=== PATIENT | female | born 1975 | race African-American/Black ===

== ENCOUNTER 2017-10-25 22:52 | Emergency (ER) | payer SELFPAY ==
[2017-10-25] MEDS ORDERED: HYDROCODONE/APAP 10/325 TAB ONE (23:44)
[2017-10-25] MEDS ORDERED: IBUPROFEN 200 MG TAB PO ONE (23:44)
[2017-10-25] MEDS ORDERED: IBUPROFEN 400 MG TAB ONE (23:44)
--- NOTE | 2017-10-26 01:39 | ER ---
Nurse's Notes [facility] Name: Apple Camara Age: 42 yrs Sex: Female : 1975 Arrival Date: 10/25/2017 Time: 23:02 Bed 19 Private MD: Diagnosis: Pain in right knee Presentation: 10/25 23:17 Presenting complaint: Patient states: "Yesterday I was walking down the stairs and I bs1 felt a pop in my knee and I almost fell it hurt so bad, almost like a Frank horse, the pain got so bad that I needed to come in.". Transition of care: patient was not received from another setting of care. Onset of symptoms was October 24, 2017. Initial Sepsis Screen: Does the patient meet any 2 criteria? No. Patient's initial sepsis screen is negative. Does the patient have a suspected source of infection? No. Patient's initial sepsis screen is negative. Care prior to arrival: None. 23:17 Method Of Arrival: Ambulatory bs1 23:17 Acuity: JOSE 4 bs1 SHOW GIRL: 10/26 00:58 LMP N/A - Irregular menses bs1 Historical: - Allergies: 10/25 23:19 No Known Allergies; bs1 - Home Meds: 23:19 None [Active]; bs1 - PMHx: 23:19 Hypertension; bs1 - PSHx: 23:19 c section; bs1 - Immunization history:: Adult Immunizations up to date. - Social history:: Smoking status: Patient/guardian denies using tobacco. - Family history:: not pertinent. Screenin:58 Abuse screen: Denies threats or abuse. Denies injuries from another. Nutritional bs1 screening: No deficits noted. Tuberculosis screening: No symptoms or risk factors identified. Fall Risk None identified. Assessment: 23:20 General: Appears in no apparent distress. uncomfortable, Behavior is calm, cooperative, bs1 appropriate for age. Pain: Complains of pain in right knee and posterior aspect of right knee Pain does not radiate. Pain currently is 9 out of 10 on a pain scale. Neuro: Level of Consciousness is awake, alert, obeys commands, Oriented to person, place, time, situation, Appropriate for age Wet Suit Gluer are equal bilaterally Moves all extremities. Cardiovascular: Denies chest pain, palpitations, shortness of breath, Heart tones S1 S2 present Capillary refill < 3 seconds Patient's skin is warm and dry. Respiratory: Airway is patent Trachea midline Respiratory effort is even, unlabored, Respiratory pattern is regular, symmetrical, Breath sounds are clear bilaterally. GI: No deficits noted. No signs and/or symptoms were reported involving the gastrointestinal system. : No deficits noted. No signs and/or symptoms were reported regarding the genitourinary system. EENT: No deficits noted. No signs and/or symptoms were reported regarding the EENT system. Derm: Skin is intact, Skin is pink, warm \\T\\ dry. Musculoskeletal: Circulation, motion, and sensation intact. Capillary refill < 3 seconds, Range of motion: limited in right knee Reports pain in right knee and posterior aspect of right knee. 10/26 00:42 Reassessment: Patient appears in no apparent distress at this time. No changes from bs1 previously documented assessment. Patient and/or family updated on plan of care and expected duration. Pain level reassessed. Patient is alert, oriented x 3, equal unlabored respirations, skin warm/dry/pink. 02:00 Reassessment: Patient appears in no apparent distress at this time. Patient and/or bs1 family updated on plan of care and expected duration. Pain level reassessed. Patient is alert, oriented x 3, equal unlabored respirations, skin warm/dry/pink. Patient states feeling better. Patient states symptoms have improved. 02:45 Reassessment: No changes from previously documented assessment. Patient and/or family bs1 updated on plan of care and expected duration. Pain level reassessed. Patient is alert, oriented x 3, equal unlabored respirations, skin warm/dry/pink. Vital Signs: 10/25 23:19 BP 190 / 121; Pulse 69; Resp 18; Temp 97.4; Pulse Ox 100% on R/A; Weight 136.08 kg; bs1 Height 5 ft. 6 in. (167.64 cm); Pain 8/10; 23:39 BP 168 / 95; Pulse 68; Pulse Ox 100% on R/A; Pain 7/10; bs1 23:45 BP 168 / 107; Pulse 72; Pulse Ox 100% on R/A; Pain 7/10; bs1 10/26 02:00 BP 132 / 77; Pulse 72; Pulse Ox 99% on R/A; Pain 5/10; bs1 10/25 23:19 Body Mass Index 48.42 (136.08 kg, 167.64 cm) bs1 ED Course: 10/25 23:02 Patient arrived in ED. es 23:08 Sawyer Campbell MD is Attending Physician. bautista 23:17 Ophelia Vargas, RN is Primary Nurse. bs1 23:19 Triage completed. bs1 10/26 00:10 Knee Right 3 View XRAY In Process Unspecified. EDMS 00:28 Arm band placed on right wrist. bs1 00:43 Patient has correct armband on for positive identification. Bed in low position. Call bs1 light in reach. Side rails up X 1. Pulse ox on. NIBP on. 00:43 No provider procedures requiring assistance completed. Patient did not have IV access bs1 during this emergency room visit. 01:35 Patient taken to ultrasound. jenn 01:39 Deacon Montes De Oca MD is Referral Physician. bautista 03:02 US Extremity Venous Uni Ltd In Process Unspecified. EDMS Administered Medications: 10/25 23:46 Drug: Beggs 10 mg-325 mg 1 tabs Route: PO; bs1 10/26 02:55 Follow up: Response: No adverse reaction; Pain is decreased bs1 10/25 23:46 Drug: Motrin 600 mg Route: PO; bs1 10/26 02:55 Follow up: Response: No adverse reaction; Pain is decreased bs1 Outcome: 01:39 Discharge ordered by . bautista 02:55 Discharged to home ambulatory, with crutches. bs1 02:55 Condition: stable 02:55 Discharge instructions given to patient, Instructed on discharge instructions, follow up and referral plans. medication usage, Demonstrated understanding of instructions, follow-up care, medications, crutch walking, Prescriptions given X 2. 02:57 Patient left the ED. bs1 Signatures: Dispatcher [employer] EDMS Sawyer Campbell MD MD cha Salyer, Edna es Dupre, Jacques jd Salazar, Brittany, ANTHONY RN bs1 Corrections: (The following items were deleted from the chart) 10/25 23:58 23:19 Resp 18bpm; Pulse Ox 100% RA; Temp 97.4F; 136.08 kg; Height 5 ft. 6 in.; BMI: bs1 48.4; Pain 8/10; bs1
--- NOTE | 2017-10-26 01:39 | EDPHYS ---
Physician Documentation [facility] Name: Apple Camara Age: 42 yrs Sex: Female : 1975 Arrival Date: 10/25/2017 Time: 23:02 Bed 19 Private MD: ED Physician Sawyer Campbell HPI: 10/25 23:34 This 42 yrs old Black Female presents to ER via Ambulatory with complaints of right bautista knee pain, popping. 23:34 The patient presents with decreased range of motion, pain, that is acute. The bautista complaints affect the posterior aspect of right knee and right knee. Context: The problem was sustained at home, resulted from an unknown cause. Onset: The symptoms/episode began/occurred 1 day(s) ago. Modifying factors: The symptoms are alleviated by elevating leg, remaining still, the symptoms are aggravated by movement, bending knee. Associated signs and symptoms: The patient has no apparent associated signs or symptoms. Treatment prior to arrival includes: no previous treatment. Severity of symptoms: At their worst the symptoms were mild, moderate, in the emergency department the symptoms are unchanged. 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 - Social history:: Smoking status: Patient/guardian denies using tobacco. - Family history:: not pertinent. ROS: 23:34 Constitutional: Negative for fever, chills, and weight loss, Eyes: Negative for injury, bautista pain, redness, and discharge, ENT: Negative for injury, pain, and discharge, Neck: Negative for injury, pain, and swelling, Cardiovascular: Negative for chest pain, palpitations, and edema, Respiratory: Negative for shortness of breath, cough, wheezing, and pleuritic chest pain, Abdomen/GI: Negative for abdominal pain, nausea, vomiting, diarrhea, and constipation, Back: Negative for injury and pain, : Negative for injury, bleeding, discharge, and swelling, Skin: Negative for injury, rash, and discoloration, Neuro: Negative for headache, weakness, numbness, tingling, and seizure. 23:34 MS/extremity: Positive for decreased range of motion, pain, tenderness, of the posterior aspect of right knee and right knee. Exam: 23:34 Constitutional: This is a well developed, well nourished patient who is awake, alert, bautista and in no acute distress. Head/Face: Normocephalic, atraumatic. Eyes: Pupils equal round and reactive to light, extra-ocular motions intact. Lids and lashes normal. Conjunctiva and sclera are non-icteric and not injected. Cornea within normal limits. Periorbital areas with no swelling, redness, or edema. ENT: Nares patent. No nasal discharge, no septal abnormalities noted. Tympanic membranes are normal and external auditory canals are clear. Oropharynx with no redness, swelling, or masses, exudates, or evidence of obstruction, uvula midline. Mucous membranes moist. Neck: Trachea midline, no thyromegaly or masses palpated, and no cervical lymphadenopathy. Supple, full range of motion without nuchal rigidity, or vertebral point tenderness. No Meningismus. Chest/axilla: Normal chest wall appearance and motion. Nontender with no deformity. No lesions are appreciated. Cardiovascular: Regular rate and rhythm with a normal S1 and S2. No gallops, murmurs, or rubs. Normal PMI, no JVD. No pulse deficits. Respiratory: Lungs have equal breath sounds bilaterally, clear to auscultation and percussion. No rales, rhonchi or wheezes noted. No increased work of breathing, no retractions or nasal flaring. Abdomen/GI: Soft, non-tender, with normal bowel sounds. No distension or tympany. No guarding or rebound. No evidence of tenderness throughout. Back: No spinal tenderness. No costovertebral tenderness. Full range of motion. Skin: Warm, dry with normal turgor. Normal color with no rashes, no lesions, and no evidence of cellulitis. Neuro: Awake and alert, GCS 15, oriented to person, place, time, and situation. Cranial nerves II-XII grossly intact. Motor strength 5/5 in all extremities. Sensory grossly intact. Cerebellar exam normal. Normal gait. 23:34 Musculoskeletal/extremity: Extremities: decreased ROM, pain, ROM: full active range of motion, full passive range of motion, Circulation is intact in all extremities. Sensation intact. Compartment Syndrome exam of affected extremity: is normal. DVT Exam: negative Homans' sign noted on exam, no appreciated bluish discoloration, no erythema, no increased warmth, pain, swelling, tenderness. Vital Signs: 23:19 BP 190 / 121; Pulse 69; Resp 18; Temp 97.4; Pulse Ox 100% on R/A; Weight 136.08 kg; bs1 Height 5 ft. 6 in. (167.64 cm); Pain 8/10; 23:39 BP 168 / 95; Pulse 68; Pulse Ox 100% on R/A; Pain 7/10; bs1 23:45 BP 168 / 107; Pulse 72; Pulse Ox 100% on R/A; Pain 7/10; [facility] 10/26 02:00 BP 132 / 77; Pulse 72; Pulse Ox 99% on R/A; Pain 5/10; [facility] 10/25 23:19 Body Mass Index 48.42 (136.08 kg, 167.64 cm) [facility] MDM: 10/25 23:08 Patient medically screened. [facility] [place] 23:39 Data reviewed: vital signs, nurses notes, radiologic studies, doppler, plain films. [facility] [place] 10/25 23:33 Order name: US Extremity Venous Uni Ltd [facility] [place] 10/25 23:33 Order name: Knee Right 3 View XRAY [facility] [place] 10/25 23:42 Order name: Crutches; Complete Time: 00:18 [facility] [place] Administered Medications: 23:46 Drug: Fillmore 10 mg-325 mg 1 tabs Route: PO; [facility] 10/26 02:55 Follow up: Response: No adverse reaction; Pain is decreased [facility] 10/25 23:46 Drug: Motrin 600 mg Route: PO; [facility] 10/26 02:55 Follow up: Response: No adverse reaction; Pain is decreased [facility] Disposition: 10/26/17 01:39 Discharged to Home. Impression: Pain in right knee. - Condition is Stable. - Discharge Instructions: Knee Pain, Arthritis, Nonspecific, [id number]. - Prescriptions for Ibuprofen 600 mg Oral Tablet - take 1 tablet by ORAL route every 8 hours As needed take with food; 21 tablet. Tylenol- Codeine #3 300-30 mg Oral Tablet - take 2 tablet by ORAL route every 6 hours As needed; 30 tablet. - Medication Reconciliation Form, Thank You Letter, Antibiotic Education, Prescription Opioid Use, Work release form form. - Follow up: Private Physician; When: 2 - 3 days; Reason: Recheck today's complaints, Continuance of care, Re-evaluation by your physician. Follow up: Dr. Deacon Montes De Oca; When: 2 - 3 days; Reason: Recheck today's complaints, Continuance of care, Re-evaluation by your physician. - Problem is new. - Symptoms have improved. Signatures: Dispatcher [employer] Sawyer Marvin, Ophelia Laureano MD, cha, RN RN bs1
[2017-10-26 03:25] VITALS: TEMP 97.4
[2017-10-26 03:27] VITALS: BP 132/77; O2SAT 99
--- NOTE | 2017-10-26 08:46 | RAD REPORT ---
EXAM DESCRIPTION: ISAACExtreoswaldo Venous Uni Ltd10/26/2017 3:02 am CLINICAL HISTORY: Right leg pain . COMPARISON: None. FINDINGS: Right common femoral, superficial femoral, popliteal and right posterior tibial veins are compressible and demonstrate augmentation. Doppler demonstrates good flow. IMPRESSION: No evidence of deep venous thrombosis involving the right lower extremity.
--- NOTE | 2017-10-26 09:06 | RAD REPORT ---
EXAM DESCRIPTION: RAD - Knee Right 3 View - 10/26/2017 12:09 am CLINICAL HISTORY: Right knee pain. FINDINGS: No fracture or dislocation is seen. The lateral view is suboptimal as the knee is rotated. Mild to moderate osteoarthritis involves medial and lateral compartments consisting of joint space na rrowing and osteophytes. Edema is present within subcutaneous tissues
== END 2017-10-26 02:57 | disposition home or self-care (01) ==
LOC: ER 22:52 → MERGE 22:52 → ER 10-26 02:57
DX: M25.561 Pain in right knee (principal)
CPT/HCPCS: 93971; 99284

== ENCOUNTER 2018-10-09 22:24 | Emergency (ER) | payer SELFPAY ==
[2018-10-09 23:53] LABS: Protime INR 1.03
[2018-10-09 23:56] LABS: Absolute Lymphocytes (CBC) 1.3 K/uL (0.7-4.9); Absolute Neutrophil 3.7 K/uL (1.8-8.0); Basophils % 1.4 % (0-1.3); Eosinophils % 2.5 % (0-4.4); Hematocrit 36.5 % (36.0-45.0); MPV 8.4 fL (7.6-11.3); RBC Red Blood Cell Count 4.28 M/uL (3.86-4.86)
[2018-10-09 23:57] LABS: Absolute Monocytes 0.6 K/uL (0.1-1.3)
[2018-10-10 00:35] LABS: ALT/SGPT 16 U/L (12-78); AST/SGOT 17 U/L (15-37); Albumin 3.3 g/dL (3.4-5.0); Alkaline Phosphatase 65 U/L (45-117); BUN Blood Urea Nitrogen 9 mg/dL (7-18); Bicarbonate 28 mmol/L (21-32); Bilirubin Direct < 0.1 mg/dL (0-0.2); Bilirubin Total 0.5 mg/dL (0.2-1.0); Glucose Level 89 mg/dL (74-106); Magnesium 1.8 mg/dL (1.8-2.4); NT PRO-BNP 89 pg/mL (<125); Protein, Total 7.6 g/dL (6.4-8.2); Sodium Level 138 mmol/L (136-145); Troponin (Emerg Dept Use Only) < 0.02 ng/mL (0.0-0.045)
--- NOTE | 2018-10-10 00:53 | ER ---
Nurse's Notes [facility] Name: Apple Camara Age: 43 yrs Sex: Female : 1975 Arrival Date: 10/09/2018 Time: 22:25 Bed 5 Private MD: Diagnosis: Chest pain on breathing Presentation: 10/09 22:34 Presenting complaint: Patient states: "My head is hurting and I feel light handedness jd3 and my chest feels tight with shortness of breath.". Transition of care: patient was not received from another setting of care. Onset of symptoms was October 09, 2018. Risk Assessment: Do you want to hurt yourself or someone else? Patient reports no desire to harm self or others. Initial Sepsis Screen: Does the patient meet any 2 criteria? No. Patient's initial sepsis screen is negative. Does the patient have a suspected source of infection? No. Patient's initial sepsis screen is negative. Care prior to arrival: None. 22:34 Method Of Arrival: Ambulatory j 22:34 Acuity: JOSE 3 jd3 RN PICU: 22:36 LMP 09/29/2018 jd3 Historical: - Allergies: 22:36 PENICILLINS; jd3 22:36 Motrin; jd3 - Home Meds: 22:36 None [Active]; jd3 - PMHx: 22:36 Hypertension; jd3 - PSHx: 22:36 c section; jd3 - Immunization history:: Adult Immunizations up to date. - Social history:: Smoking status: Patient uses tobacco products, smokes one-half pack cigarettes per day, Patient/guardian denies using alcohol, street drugs, The patient lives with family. - Ebola Screening: : Patient negative for fever greater than or equal to 101.5 degrees Fahrenheit, and additional compatible Ebola Virus Disease symptoms. - Family history:: not pertinent. Screenin:00 Abuse screen: Denies threats or abuse. Nutritional screening: No deficits noted. ea Tuberculosis screening: No symptoms or risk factors identified. Fall Risk IV access (20 points). Assessment: 22:58 General: Appears uncomfortable, Behavior is calm, cooperative, appropriate for age. ea Pain: Denies pain. Neuro: Level of Consciousness is awake, alert, obeys commands, Oriented to person, place, time, situation. Cardiovascular: Patient's skin is warm and dry. Respiratory: Airway is patent Respiratory effort is even, unlabored, Respiratory pattern is regular, symmetrical, Breath sounds are clear bilaterally. Derm: Skin is pink, warm \\T\\ dry. 23:26 Reassessment: Patient and/or family updated on plan of care and expected duration. Pain ea level reassessed. Patient is alert, oriented x 3, equal unlabored respirations, skin warm/dry/pink. 10/10 00:02 Reassessment: Patient and/or family updated on plan of care and expected duration. Pain ea level reassessed. Patient is alert, oriented x 3, equal unlabored respirations, skin warm/dry/pink. 01:01 Reassessment: Patient and/or family updated on plan of care and expected duration. Pain ea level reassessed. Patient is alert, oriented x 3, equal unlabored respirations, skin warm/dry/pink. Discharge instruction given to patient, verbalized the understanding of instruction. Vital Signs: 10/09 22:36 BP 185 / 114; Pulse 90; Resp 19 S; Temp 98.2(TE); Pulse Ox 100% on R/A; Weight 127.01 jd3 kg (R); Height 5 ft. 8 in. (172.72 cm) (R); Pain 7/10; 10/10 00:50 BP 139 / 78; Pulse 56; Resp 18; Temp 98; Pulse Ox 99% on R/A; ea 10/09 22:36 Body Mass Index 42.57 (127.01 kg, 172.72 cm) jd3 ED Course: 10/09 22:25 Patient arrived in ED. am2 22:35 Triage completed. jd3 22:39 Arm band placed on. jd3 22:50 EKG completed in triage. Results shown to MD. jd3 22:55 Jesús Epstein MD is Attending Physician. ma2 23:00 Patient has correct armband on for positive identification. Placed in gown. Bed in low ea position. Call light in reach. Side rails up X2. 23:00 vp project on. Pulse ox on. NIBP on. ea 23:00 Patient maintains SpO2 saturation greater than 95% on room air. ea 23:01 Mildred Pichardo, ANTHONY is Primary Nurse. ea 23:17 X-ray completed. Portable x-ray completed in exam room. Patient tolerated procedure kw well. 23:26 Inserted saline lock: 20 gauge in right antecubital area, using aseptic technique. ea Blood collected. 23:32 XRAY Chest (1 view) In Process Unspecified. EDMS 10/10 01:01 No provider procedures requiring assistance completed. IV discontinued, intact, ea bleeding controlled, No redness/swelling at site. Pressure dressing applied. Administered Medications: No medications were administered Outcome: 00:51 Discharge ordered by . delia 01:01 Discharged to home ambulatory, with family. ea 01:01 Condition: improved 01:01 Discharge instructions given to patient, Instructed on discharge instructions, follow up and referral plans. medication usage, Demonstrated understanding of instructions, follow-up care, medications, Prescriptions given X 3. 01:08 Patient left the ED. ea Signatures: Dispatcher [employer] EDIA Lainey Major Amanda am2 Antunez, Elena, RN RN Ashish Rodriguez RN RN Jesús Hebert MD MD ma2 Corrections: (The following items were deleted from the chart) 10/09 22:39 22:36 Pulse 90bpm; Resp 19bpm; Spontaneous; Pulse Ox 100% RA; Temp 98.2F Temporal; jd3 127.01 kg Reported; Height 5 ft. 8 in. Reported; BMI: 42.5; Pain 7/10; jd3
--- NOTE | 2018-10-10 00:53 | EDPHYS ---
Physician Documentation [facility] Name: Apple Camara Age: 43 yrs Sex: Female : 1975 Arrival Date: 10/09/2018 Time: 22:25 Bed 5 Private MD: ED Physician Jesús Epstein HPI: 10/10 00:02 This 43 yrs old Black Female presents to ER via Ambulatory with complaints of Chest ma2 Tightness, Breathing Difficulty. 00:02 The patient or guardian reports chest pain that is located primarily in the substernal ma2 area, epigastric area. Onset: gradually, 2 day(s) ago. Associated signs and symptoms: Pertinent positives: cough, Pertinent negatives: None. The chest pain is described as a heaviness. Duration: The patient or guardian reports a single episode. Severity of pain: At its worst the pain was moderate in the emergency department the pain is unchanged. 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 - Social history:: Smoking status: Patient uses tobacco products, smokes one-half pack cigarettes per day, Patient/guardian denies using alcohol, street drugs, The patient lives with family. - Ebola Screening: : Patient negative for fever greater than or equal to 101.5 degrees Fahrenheit, and additional compatible Ebola Virus Disease symptoms. - Family history:: not pertinent. ROS: 10/10 00:02 Constitutional: Negative for fever, chills, and weight loss. ma2 Respiratory: Negative for shortness of breath, cough, wheezing, and pleuritic chest pain. Cardiovascular: Positive for chest pain, Negative for orthopnea, palpitations, paroxysmal nocturnal dyspnea. All other systems are negative. Exam: 00:02 Constitutional: This is a well developed, well nourished patient who is awake, alert, ma2 and in no acute distress. ENT: Nares patent. No nasal discharge, no septal abnormalities noted. Tympanic membranes are normal and external auditory canals are clear. Oropharynx with no redness, swelling, or masses, exudates, or evidence of obstruction, uvula midline. Mucous membranes moist. Chest/axilla: Normal chest wall appearance and motion. Nontender with no deformity. No lesions are appreciated. Cardiovascular: Regular rate and rhythm with a normal S1 and S2. No gallops, murmurs, or rubs. Normal PMI, no JVD. No pulse deficits. Respiratory: Lungs have equal breath sounds bilaterally, clear to auscultation and percussion. No rales, rhonchi or wheezes noted. No increased work of breathing, no retractions or nasal flaring. Abdomen/GI: Soft, non-tender, with normal bowel sounds. No distension or tympany. No guarding or rebound. No evidence of tenderness throughout. Back: No spinal tenderness. No costovertebral tenderness. Full range of motion. MS/ Extremity: Pulses equal, no cyanosis. Neurovascular intact. Full, normal range of motion. Psych: Awake, alert, with orientation to person, place and time. Behavior, mood, and affect are within normal limits. Vital Signs: 10/09 22:36 BP 185 / 114; Pulse 90; Resp 19 S; Temp 98.2(TE); Pulse Ox 100% on R/A; Weight 127.01 jd3 kg (R); Height 5 ft. 8 in. (172.72 cm) (R); Pain 7/10; 10/10 00:50 BP 139 / 78; Pulse 56; Resp 18; Temp 98; Pulse Ox 99% on R/A; ea 10/09 22:36 Body Mass Index 42.57 (127.01 kg, 172.72 cm) jd3 MDM: 10/09 22:55 Patient medically screened. ak2 10/10 00:02 Differential diagnosis: chest wall pain, congestive heart failure gastroesophageal ma2 reflux disease (GERD), pancreatitis, stable angina. 00:50 Data reviewed: vital signs, nurses notes, diagnostic data from outside facility, [facility] medical records, lab test result(s). Response to treatment: the patient's symptoms have resolved after treatment. ED course: chest pain is constant for 3 days unchanged mild worse with deep breath and reproducible on exam has had this before, . 10/09 22:57 Order name: Basic Metabolic Panel 10/09 22:57 Order name: CBC with Diff 10/09 22:57 Order name: LFT's 10/09 22:57 Order name: Magnesium; Complete Time: 00:41 ea 10/09 22:57 Order name: NT PRO-BNP; Complete Time: 00:41 ea 10/09 22:57 Order name: PT-INR; Complete Time: 23:59 ea 10/09 22:57 Order name: Troponin (emerg Dept Use Only) 10/09 22:57 Order name: XRAY Chest (1 view) 10/09 22:57 Order name: EKG; Complete Time: 22:58 10/09 22:57 Order name: Cardiac monitoring; Complete Time: 23:19 ea 10/09 22:58 Order name: Basic Metabolic Panel; Complete Time: 00:41 EDMS 10/09 22:58 Order name: CBC with Automated Diff; Complete Time: 23:59 EDMS 10/09 22:58 Order name: Liver (Hepatic) Function; Complete Time: 00:41 EDMS 10/09 22:58 Order name: Troponin (Emerg Dept Use Only); Complete Time: 00:41 EDMS 10/09 22:57 Order name: EKG - Nurse/Tech; Complete Time: 23:18 ea 10/09 22:57 Order name: IV Saline Lock; Complete Time: 23:19 ea 10/09 22:57 Order name: Labs collected and sent; Complete Time: 23:19 ea 10/09 22:57 Order name: O2 Per Protocol; Complete Time: 23:19 ea 10/09 22:57 Order name: O2 Sat Monitoring; Complete Time: 23:19 ea Administered Medications: No medications were administered Disposition: 10/10/18 00:51 Discharged to Home. Impression: Chest pain on breathing. - Condition is Stable. - Discharge Instructions: Chest Wall Pain. - Prescriptions for Klonopin 0.5 mg Oral Tablet - take 1 tablet by ORAL route every 12 hours As needed; 10 tablet. Tylenol- Codeine #3 300-30 mg Oral Tablet - take 2 tablet by ORAL route every 6 hours As needed; 30 tablet. Captopril 12.5 mg Oral Tablet - take 1 tablet by ORAL route every 12 hours; 60 tablet. - Work release form, Medication Reconciliation Form, Thank You Letter, Antibiotic Education, Prescription Opioid Use form. - Follow up: Private Physician; When: Tomorrow; Reason: Continuance of care. Signatures: Dispatcher [employer] Mildred Gurrola RN RN ea Davies, Jonathon, RN RN Jesús Hebert MD MD ma2 Corrections: (The following items were deleted from the chart) 01:08 00:51 10/10/2018 00:51 Discharged to Home. Impression: Chest pain on breathing. ea Condition is Stable. Forms are Medication Reconciliation Form, Thank You Letter, Antibiotic Education, Prescription Opioid Use. Follow up: Private Physician; When: Tomorrow; Reason: Continuance of care. ma2
[2018-10-10 01:14] VITALS: BP 139/78; TEMP 98; O2SAT 99
--- NOTE | 2018-10-10 08:17 | RAD REPORT ---
EXAM DESCRIPTION: Karthik Single View10/09/2018 11:32 pm CLINICAL HISTORY: Chest pain COMPARISON: none FINDINGS: The left base is hazy. Right lung appears clear. Heart is borderline enlarged IMPRESSION: Left base is hazy which could be secondary to overlying soft tissue or infiltrate. PA an d lateral chest series would be helpful for further evaluation
== END 2018-10-10 01:08 | disposition home or self-care (01) ==
LOC: ER 22:24
DX: R07.1 Chest pain on breathing (principal); I10 Essential (primary) hypertension; Z88.0 Allergy status to penicillin; F17.210 Nicotine dependence, cigarettes, uncomplicated
CPT/HCPCS: 36415; 71045; 80048; 80076; 83735; 83880; 84484; 85025; 85610; 93005; 99285

== ENCOUNTER 2020-01-07 12:49 | Emergency (ER) | payer OTHER, SELFPAY ==
--- NOTE | 2020-01-07 13:24 | ER ---
Nurse's Notes [facility] Name: Apple Camara Age: 44 yrs Sex: Female : 1975 Arrival Date: 01/07/2020 Time: 12:50 Bed 17 Private MD: Diagnosis: Presentation: 01/06 12:50 Chief complaint: EMS states: chest pain that started after being arrested for em possession of some substance, EMS showed up and pt was complaining of chest tightness, denies N/V, given 324 ASA and Nitro x 1, pt reports it did not help pain, 20 G R wrist, pt reports being 3 months . Coronavirus screen: Proceed with normal triage. Patient denies a cough. Patient denies shortness of breath or difficulty breathing. Patient denies measured and/or subjective temperature greater than 100.4F prior to today's visit. Patient denies travel on a cruise ship or to a country the [facility] currently lists as an affected area. Patient denies contact with known and/or suspected case of COVID-19. Ebola Screen: Patient negative for fever greater than or equal to 101.5 degrees Fahrenheit, and additional compatible Ebola Virus Disease symptoms Patient denies exposure to infectious person. Patient denies travel to an Ebola-affected area in the 21 days before illness onset. No symptoms or risks identified at this time. Initial Sepsis Screen: Does the patient meet any 2 criteria? HR > 90 bpm. No. Patient's initial sepsis screen is negative. Does the patient have a suspected source of infection? No. Patient's initial sepsis screen is negative. Risk Assessment: Do you want to hurt yourself or someone else? Patient reports no desire to harm self or others. Onset of symptoms was January 07, 2020. 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 - Social history:: Smoking status: Patient denies any tobacco usage or history of. Assessment: 13:02 Reassessment: Noted pt to be walking out to the ER lobby. Went out to speak with the pt sv but she had already gotten outside with a man and into a [employer] truck. I was able to have the commercial driver's license driver stop, asked the pt if she was leaving and she said "Yes, yall aren't doing anything and I'm hurting and the cuff was hurting." I informed the pt that she had just arrived and we were getting her started up. I asked the pt to come out of the truck so I could take her IV out. Pt stated "We will pull around and I'll come out." The truck noted to be leaving the hospital parking lot. 13:09 Reassessment: Called [facility] dispatcher and informed them that pt left with an IV in sv place. Given description of [employer] truck, license plate [id number]. He stated they would send someone to find her. 13:16 Reassessment: Officer Tello came by the ER, stated they have a officer by her vehicle sv waiting for her. They are still looking for her. Vital Signs: 12:50 BP 192 / 107; Pulse 109; Resp 18; Temp 98.7; Pulse Ox 99% on R/A; Weight 95.25 kg; em Height 5 ft. 4 in. (162.56 cm); Pain 6/10; 12:50 Body Mass Index 36.05 (95.25 kg, 162.56 cm) em ED Course: 12:50 Patient arrived in ED. em 12:53 Mis Vickers RN is Primary Nurse. ca1 12:54 Triage completed. em 12:55 Arm band placed on. em 12:56 Chas Linder PA is PHCP. [facility] 12:56 Miko Watkins MD is Attending Physician. [facility] Administered Medications: No medications were administered Outcome: 13:23 Patient left the ED. sv Signatures: Sheyla Cheney RN RN Chas Linder PA PA [facility] Emory Smith RN RN Mis Vickers RN RN ca1 Corrections: (The following items were deleted from the chart) 12:56 12:50 Chief complaint: EMS states: chest pain that started after being arrested for em possession of some substance, EMS showed up and pt was complaining of chest tightness, denies N/V, given 324 ASA and Nitro x 1, pt reports it did not help pain, 20 G R wrist em
[2020-01-07 13:33] VITALS: BP 192/107; TEMP 98.7; O2SAT 99
--- NOTE | 2020-01-08 13:24 | EDPHYS ---
Physician Documentation [facility] Name: Apple Camara Age: 44 yrs Sex: Female : 1975 Arrival Date: 01/07/2020 Time: 12:50 Bed 17 Private MD: ED Physician Miko Watkins HPI: 01/06 12:57 This 44 yrs old Black Female presents to ER via EMS with complaints of Chest Pain > 30 jmm y/o. 12:57 The patient or guardian reports chest pain that is located primarily in the substernal [facility] area. Onset: acutely, just prior to arrival. The pain does not radiate. Associated signs and symptoms: Pertinent negatives: abdominal pain, lower extremity swelling, lightheadedness. The chest pain is described as aching, crushing, a pressure, sharp. Duration: The patient or guardian reports a single episode, that is still ongoing, but improving. 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 - Social history:: Smoking status: Patient denies any tobacco usage or history of. ROS: 12:57 Constitutional: Negative for fever, chills, and weight loss. jmm 12:57 Respiratory: Negative for shortness of breath, cough, wheezing, and pleuritic chest pain, Abdomen/GI: Negative for abdominal pain, nausea, vomiting, diarrhea, and constipation, Neuro: Negative for headache, weakness, numbness, tingling, and seizure. 12:57 Cardiovascular: Positive for chest pain. 12:57 All other systems are negative. Exam: 12:57 Constitutional: This is a well developed, well nourished patient who is awake, alert, jmm and in no acute distress. Head/Face: atraumatic. Eyes: EOMI, no conjunctival erythema appreciated ENT: Moist Mucus Membranes Neck: Trachea midline, Supple Chest/axilla: Normal chest wall appearance and motion. Cardiovascular: Regular rate and rhythm. No edema appreciated Respiratory: Normal respirations, no respiratory distress appreciated Abdomen/GI: Non distended, soft Back: Normal ROM Skin: General appearance color normal MS/ Extremity: Moves all extremities, no obvious deformities appreciated, no edema noted to the lower extremities Neuro: Awake and alert, normal gait Psych: Behavior is normal, Mood is normal, Patient is cooperative and pleasant Vital Signs: 12:50 BP 192 / 107; Pulse 109; Resp 18; Temp 98.7; Pulse Ox 99% on R/A; Weight 95.25 kg; em Height 5 ft. 4 in. (162.56 cm); Pain 6/10; 12:50 Body Mass Index 36.05 (95.25 kg, 162.56 cm) em MDM: 13:06 Patient medically screened. [facility] 01/06 12:57 Order name: Cardiac monitoring [facility] 01/06 12:57 Order name: EKG - Nurse/Tech [facility] 01/06 12:57 Order name: IV Saline Lock [facility] 01/06 12:57 Order name: Labs collected and sent [facility] 01/06 12:57 Order name: O2 Per Protocol [facility] 01/06 12:57 Order name: O2 Sat Monitoring [facility] Administered Medications: No medications were administered Disposition: 15:56 Co-signature as Attending Physician, Miko Watkins MD I agree with the assessment and kdr plan of care. Disposition: 01/07/20 13:23 Patient left the facility before being seen by provider. - Patient left due to other. Signatures: Dispatcher [employer] Sheyla Jain, RN Miko Thompson MD MD kdr Mickail, Joel, PA PA Emory Bacon RN RN em
== END 2020-01-07 13:23 | disposition left against medical advice (07) ==
LOC: ER 12:49
DX: R07.9 Chest pain, unspecified (principal); Z53.21 Procedure and treatment not carried out due to patient leaving prior to being seen by health care provider
CPT/HCPCS: 99282

== ENCOUNTER 2020-08-19 22:39 | Emergency (ER) | payer OTHER, SELFPAY ==
--- NOTE | 2020-08-20 00:33 | EDPHYS ---
Physician Documentation [facility] Name: Apple Camara Age: 45 yrs Sex: Female : 1975 Arrival Date: 08/19/2020 Time: 22:39 Bed 17 Private MD: ED Physician Gary Bains HPI: 08/20 00:36 This 45 yrs old Black Female presents to ER via Ambulatory with complaints of Breathing tw4 Difficulty. 00:36 The patient has shortness of breath at rest. Onset: The symptoms/episode began/occurred tw4 2 week(s) ago. Duration: The symptoms are continuous. The patient's shortness of breath has no apparent modifying factors. Severity of symptoms: At their worst the symptoms were moderate in the emergency department the symptoms are unchanged. The patient has experienced a previous episode. 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 - Social history:: Smoking status: Patient reports the use of cigarette tobacco products, denies chronic smoking, but will smoke occasionally. ROS: 08/20 00:36 Constitutional: Negative for fever, chills, and weight loss, Eyes: Negative for injury, tw4 pain, redness, and discharge, ENT: Negative for injury, pain, and discharge, Cardiovascular: Negative for chest pain, palpitations, and edema, Abdomen/GI: Negative for abdominal pain, nausea, vomiting, diarrhea, and constipation, Back: Negative for injury and pain, MS/Extremity: Negative for injury and deformity, Skin: Negative for injury, rash, and discoloration, Neuro: Negative for headache, weakness, numbness, tingling, and seizure. Respiratory: Positive for shortness of breath. Respiratory: Positive for dyspnea on exertion, Negative for cough, hemoptysis, orthopnea. Exam: 00:36 Constitutional: This is a well developed, well nourished patient who is awake, alert, tw4 and in no acute distress. Head/Face: Normocephalic, atraumatic. Chest/axilla: Normal chest wall appearance and motion. Nontender with no deformity. No lesions are appreciated. Cardiovascular: Regular rate and rhythm with a normal S1 and S2. No gallops, murmurs, or rubs. Normal PMI, no JVD. No pulse deficits. Respiratory: Lungs have equal breath sounds bilaterally, clear to auscultation and percussion. No rales, rhonchi or wheezes noted. No increased work of breathing, no retractions or nasal flaring. Abdomen/GI: Soft, non-tender, with normal bowel sounds. No distension or tympany. No guarding or rebound. No evidence of tenderness throughout. Back: No spinal tenderness. No costovertebral tenderness. Full range of motion. Skin: Warm, dry with normal turgor. Normal color with no rashes, no lesions, and no evidence of cellulitis. MS/ Extremity: Pulses equal, no cyanosis. Neurovascular intact. Full, normal range of motion. Neuro: Awake and alert, GCS 15, oriented to person, place, time, and situation. Cranial nerves II-XII grossly intact. Motor strength 5/5 in all extremities. Sensory grossly intact. Cerebellar exam normal. Normal gait. Vital Signs: 08/19 22:47 Pulse 78; Resp 20; Temp 97.9; Pulse Ox 100% on R/A; Weight 112.94 kg; Height 5 ft. 5 em in. (165.10 cm); Pain 0/10; 22:52 BP 174 / 100; em 22:47 Body Mass Index 41.44 (112.94 kg, 165.10 cm) em MDM: 08/20 00:29 Patient medically screened. tw4 00:36 Antibiotic administration: Not indicated. Data reviewed: vital signs, nurses notes. tw Data interpreted: Pulse oximetry: Interpretation: normal. Counseling: I had a detailed discussion with the patient and/or guardian regarding: the historical points, exam findings, and any diagnostic results supporting the discharge/admit diagnosis. Special discussion: I discussed with the patient/guardian in detail that at this point there is no indication for admission to the hospital. It is understood, however, that if the symptoms persist or worsen the patient needs to return immediately for re-evaluation. 08/19 23:06 Order name: Strep tw4 08/19 23:06 Order name: CXR XRAY tw4 08/20 00:19 Order name: Throat Culture EDMS 08/20 00:46 Order name: COVID-19/FLU A+B [facility] 08/19 23:06 Order name: Droplet/Contact Precautions; Complete Time: 00:32 4 08/19 23:06 Order name: Labs collected and sent; Complete Time: 00:32 4 08/19 23:06 Order name: O2 Per Protocol; Complete Time: 00:32 4 08/20 00:33 Order name: EKG; Complete Time: :33 tw EC:31 Rate is 101 beats/min. Rhythm is regular with Unifocal PVCs. QRS [place] is Normal. [place] tw4 interval is normal. QRS interval is normal. QT interval is normal. No Q waves. T waves are Inverted. No ST changes noted. Clinical impression: NSR w/ Non-specific ST/T Changes. Interpreted by me. Reviewed by me. Administered Medications: 00:35 Drug: predniSONE 60 mg Route: PO; 2 01:22 Follow up: Response: No adverse reaction 2 01:22 Drug: cloNIDine 0.1 mg Route: PO; 2 01:22 Follow up: Response: Medication administered at discharge. ll2 Disposition: 08/20/20 00:32 Discharged to Home. Impression: Dyspnea. - Condition is Stable. - Discharge Instructions: Shortness of Breath, [id number]. - Prescriptions for Medrol ([place]) 4 mg Oral Tablets, Dose Pack - take 1 tablet by ORAL route as directed - follow package instructions; 1 packet. Albuterol Sulfate 90 mcg/actuation - inhale 1-2 puff by INHALATION route every 4-6 hours; 1 Inhaler. - Medication Reconciliation Form, Thank You Letter, Antibiotic Education, Prescription Opioid Use form. - Follow up: Private Physician; When: Upon discharge from the Emergency Department; Reason: Recheck today's complaints, Continuance of care, Re-evaluation by your physician. - Problem is new. - Symptoms have improved. Signatures: Dispatcher [employer] [facility] Emory Smith, RN RN Gary Gutierrez MD MD tw4 Desiree Tong RN RN ll2 Corrections: (The following items were deleted from the chart) 08/19 23:59 23:06 Influenza Screen (A \T\ B)+[id number].LAB.BRZ ordered. [facility] 08/20 01:41 00:32 08/20/2020 00:32 Discharged to Home. Impression: Dyspnea. Condition is Stable. ll2 Forms are Medication Reconciliation Form, Thank You Letter, Antibiotic Education, Prescription Opioid Use. Follow up: Private Physician; When: Upon discharge from the Emergency Department; Reason: Recheck today's complaints, Continuance of care, Re-evaluation by your physician. Problem is new. Symptoms have improved. tw4
--- NOTE | 2020-08-20 00:33 | ER ---
Nurse's Notes [facility] Name: Apple Camara Age: 45 yrs Sex: Female : 1975 Arrival Date: 08/19/2020 Time: 22:39 Bed 17 Private MD: Diagnosis: Dyspnea Presentation: 08/19 22:47 Chief complaint: Patient states: shortness of breath on exertion for 1 week, denies em fever. Coronavirus screen: chills, difficulty breathing, shortness of breath, Client presents with at least one sign or symptom that may indicate coronavirus-19. Standard/surgical mask placed on the client. Provider contacted for isolation considerations. Ebola Screen: Patient negative for fever greater than or equal to 101.5 degrees Fahrenheit, and additional compatible Ebola Virus Disease symptoms Patient denies exposure to infectious person. Patient denies travel to an Ebola-affected area in the 21 days before illness onset. No symptoms or risks identified at this time. Initial Sepsis Screen: Does the patient meet any 2 criteria? No. Patient's initial sepsis screen is negative. Does the patient have a suspected source of infection? No. Patient's initial sepsis screen is negative. Risk Assessment: Do you want to hurt yourself or someone else? Patient reports no desire to harm self or others. Onset of symptoms was August 19, 2020. 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 - Social history:: Smoking status: Patient reports the use of cigarette tobacco products, denies chronic smoking, but will smoke occasionally. Screenin:35 Abuse screen: Denies threats or abuse. Nutritional screening: No deficits noted. ll2 Tuberculosis screening: No symptoms or risk factors identified. Fall Risk None identified. Assessment: 23:35 General: Appears in no apparent distress. Behavior is calm, cooperative, appropriate ll2 for age. Pain: Denies pain. Neuro: Level of Consciousness is awake, alert, obeys commands, Oriented to person, place, time, situation. Cardiovascular: Patient's skin is warm and dry. Rhythm is irregular. Respiratory: Airway is patent Respiratory effort is even, labored, Breath sounds are clear. GI: No signs and/or symptoms were reported involving the gastrointestinal system. : No signs and/or symptoms were reported regarding the genitourinary system. EENT: No signs and/or symptoms were reported regarding the EENT system. Derm: Skin is intact, is healthy with good turgor, Skin is dry, Skin is normal, Skin temperature is warm. Musculoskeletal: Circulation, motion, and sensation intact. Range of motion: intact in all extremities. Vital Signs: 22:47 Pulse 78; Resp 20; Temp 97.9; Pulse Ox 100% on R/A; Weight 112.94 kg; Height 5 ft. 5 em in. (165.10 cm); Pain 0/10; 22:52 BP 174 / 100; em 22:47 Body Mass Index 41.44 (112.94 kg, 165.10 cm) em ED Course: 22:39 Patient arrived in ED. cf2 22:51 Triage completed. em 22:52 Arm band placed on. em 23:03 Gary Bains MD is Attending Physician. tw4 08/20 00:32 Desiree Tong, ANTHONY is Primary Nurse. ll2 00:35 CXR XRAY In Process Unspecified. EDMS Administered Medications: 00:35 Drug: predniSONE 60 mg Route: PO; ll2 01:22 Follow up: Response: No adverse reaction ll2 01:22 Drug: cloNIDine 0.1 mg Route: PO; ll2 01:22 Follow up: Response: Medication administered at discharge. 2 Outcome: 00:32 Discharge ordered by . tw4 01:41 Patient left the ED. 2 Signatures: Dispatcher [employer] EDMS Emory Smith RN RN Gary Bains MD MD 4 Lisa Babin 2 Desiree Tong, ANTHONY RN 2
[2020-08-20 00:46] LABS: SARS-COV-2 RT PCR NEGATIVE (NEGATIVE)
[2020-08-20] MEDS ORDERED: predniSONE 20 MG TAB ONE (00:52)
[2020-08-20] MEDS ORDERED: cloNIDine HCL 0.1 MG TAB ONE (01:35)
[2020-08-20 01:48] VITALS: TEMP 97.9; O2SAT 100
[2020-08-20 01:49] VITALS: BP 174/100
--- NOTE | 2020-08-20 11:44 | RAD REPORT ---
EXAM DESCRIPTION: RAD - Chest Single View - 08/20/2020 12:35 am CLINICAL HISTORY: SOB Chest pain. COMPARISON: Chest Single View dated 10/09/2018 FINDINGS: Portable technique limits examination quality. Mild interstitial opacities are present bilaterally which may indicate mild interstitial pulmonary ed sherita. The heart is mildly enlarged in size. No displaced fractures. IMPRESSION: Mild CHF is possible.
--- NOTE | 2020-08-21 07:54 | EKG ---
Test Date: 2020-08-20 Test Time: 00:58:47 Cooker Process Cheese: MICAH MEASUREMENT RESULTS: Intervals: Rate: 101 NJ: 130 QRSD: 84 QT: 400 QTc: 518 Wedron: P: 57 NJ: 130 QRS: -30 T: 105 INTERPRETIVE STATEMENTS: Sinus tachycardia with frequent premature ventricular complexes in a pattern of bigeminy Left axis deviation Minimal voltage criteria for LVH, may be normal variant Possible Anterior infarct, age undetermined T wave abnormality, consider lateral ischemia Abnormal ECG Compared to ECG 10/09/2018 22:43:42 Ventricular premature complex(es) now present Myocardial infarct finding now present T-wave abnormality now present Possible ischemia now present Sinus rhythm no longer present Prolonged QT interval no longer present Electronically Signed On 08-21-20 07:53:00 FORM BUILDER by Hugh Polanco
== END 2020-08-20 01:41 | disposition home or self-care (01) ==
LOC: ER 22:39
DX: R06.00 Dyspnea, unspecified (principal); Z20.822 Contact with and (suspected) exposure to COVID-19; I10 Essential (primary) hypertension; F17.210 Nicotine dependence, cigarettes, uncomplicated; Z88.0 Allergy status to penicillin; Z88.6 Allergy status to analgesic agent
CPT/HCPCS: 0240U; 71045; 87070; 87081; 93005; 99283; J7512

== ENCOUNTER 2020-10-05 04:38 | Emergency (ER) | payer OTHER ==
[2020-10-05] MEDS ORDERED: cloNIDine HCL 0.1 MG TAB ONE (05:32)
[2020-10-05 06:09] LABS: Basophils % 1.8 % (0-1.3); Hematocrit 32.1 % (36.0-45.0); Lymphocytes % 24.3 % (15.3-44.8); MPV 8.7 fL (7.6-11.3); RBC Red Blood Cell Count 3.71 M/uL (3.86-4.86)
[2020-10-05 06:18] LABS: ALT/SGPT 57 U/L (12-78); AST/SGOT 43 U/L (15-37); Albumin 3.2 g/dL (3.4-5.0); Alkaline Phosphatase 83 U/L (45-117); BUN Blood Urea Nitrogen 18 mg/dL (7-18); Bicarbonate 29 mmol/L (21-32); Bilirubin Direct < 0.1 mg/dL (0-0.2); Bilirubin Total 0.3 mg/dL (0.2-1.0); Glucose Level 101 mg/dL (74-106); NT PRO-BNP 1259 pg/mL (<125); Potassium 3.1 mmol/L (3.5-5.1); Protein, Total 7.2 g/dL (6.4-8.2); Sodium Level 141 mmol/L (136-145); Troponin (Emerg Dept Use Only) 0.03 ng/mL (0.0-0.045)
--- NOTE | 2020-10-05 06:27 | EDPHYS ---
Physician Documentation [facility] Name: Apple Camara Age: 45 yrs Sex: Female : 1975 Arrival Date: 10/05/2020 Time: 04:41 Bed 18 Private MD: ED Physician HPI: 10/05 05:24 This 45 yrs old Black Female presents to ER via Wheelchair with complaints of Breathing rn Difficulty. 05:24 The patient has shortness of breath at rest, with light activity. Onset: The rn symptoms/episode began/occurred 1 week(s) ago. Duration: The symptoms are intermittent. The patient's shortness of breath is aggravated by exertion, light activity, talking. Associated signs and symptoms: Pertinent negatives: productive cough, fever, hemoptysis. Severity of symptoms: At their worst the symptoms were moderate in the emergency department the symptoms are unchanged. The patient has experienced a previous episode. The patient has not recently seen a physician. Reports increased sob for 1 week, + smoker, no known heart problems, + HTN but does not take meds. Reports happened once before and improved with steroids. No fever. Does not feel ill. . Historical: - Allergies: 04:56 Motrin; em 04:56 PENICILLINS; em - PMHx: 04:56 Hypertension; em - PSHx: 04:56 ; em - Immunization history:: Adult Immunizations up to date. - Social history:: Smoking status: Patient reports the use of cigarette tobacco products, denies chronic smoking, but will smoke occasionally. - Family history:: not pertinent. - Hospitalizations: : No recent hospitalization is reported. ROS: 05:24 Constitutional: Negative for fever, chills, and weight loss, Eyes: Negative for injury, rn pain, redness, and discharge, Neck: Negative for injury, pain, and swelling, Cardiovascular: Negative for chest pain, palpitations, and edema, Respiratory: + sob and cough Abdomen/GI: Negative for abdominal pain, nausea, vomiting, diarrhea, and constipation, Back: Negative for injury and pain, MS/Extremity: Negative for injury and deformity, Skin: Negative for injury, rash, and discoloration, Neuro: Negative for headache, weakness, numbness, tingling, and seizure. Exam: 05:24 Constitutional: Overweight female, + mild tachypnea, no retractions Head/Face: rn Normocephalic, atraumatic. Eyes: Pupils equal round and reactive to light, extra-ocular motions intact. Lids and lashes normal. Conjunctiva and sclera are non-icteric and not injected. Cornea within normal limits. Periorbital areas with no swelling, redness, or edema. ENT: No stridor Cardiovascular: Tachycardic, regular. No pulse deficits. Respiratory: + mild to moderate tachypnea, no retractions. Abdomen/GI: soft, non-tender Skin: Warm, dry MS/ Extremity: Pulses equal, no cyanosis. Neuro: Awake and alert, GCS 15 Vital Signs: 04:51 BP 191 / 130; Pulse 113; Resp 24; Temp 97.8; Pulse Ox 100% on R/A; Pain 6/10; em 06:00 BP 178 / 129; Pulse 102; Resp 20; Pulse Ox 98% on R/A; jb4 06:30 BP 176 / 120; Pulse 101; Resp 24; Pulse Ox 100% on R/A; jb4 MDM: 04:44 Patient medically screened. rn 06:23 Differential diagnosis: CHF exacerbation, Myocardial Infarction Pneumothorax pulmonary rn edema. 06:25 Data reviewed: vital signs, nurses notes, lab test result(s), EKG, radiologic studies, rn and as a result, I will admit patient. Counseling: I had a detailed discussion with the patient and/or guardian regarding: the historical points, exam findings, and any diagnostic results supporting the discharge/admit diagnosis, lab results, radiology results, the need for further work-up and treatment in the hospital. Response to treatment: the patient's symptoms have mildly improved after treatment, and as a result, I will admit patient. Admission orders: after a detailed discussion of the patient's condition and case, the admit orders are written by me. ED course: Pt with signs and symptoms of pulmonary edema/CHF, will admit to Dr. Flores for further care as does not have pcp or medication. . 10/05 04:57 Order name: Blood Culture Adult (2) rn 10/05 04:57 Order name: BMP rn 10/05 04:57 Order name: CBC with Diff rn 10/05 04:57 Order name: Hepatic Function; Complete Time: 06:23 rn 10/05 04:57 Order name: NT PRO-BNP; Complete Time: 06:23 rn 10/05 04:57 Order name: Troponin (emerg Dept Use Only); Complete Time: 06:23 rn 10/05 04:57 Order name: Procalcitonin; Complete Time: 08:10 rn 10/05 04:57 Order name: Blood Culture EDMS 10/05 04:57 Order name: Basic Metabolic Panel; Complete Time: 06:23 EDMS 10/05 04:57 Order name: CBC with Automated Diff; Complete Time: 06:23 EDMS 10/05 05:59 Order name: COVID-19 : Document "Date of Symptom Onset" if Symptomatic. em 10/05 06:59 Order name: SARS-COV-2 RT PCR; Complete Time: 08:10 EDMS 10/05 04:57 Order name: XRAY CXR (1 view) rn 10/05 04:57 Order name: EKG; Complete Time: 04:58 rn 10/05 04:57 Order name: Cardiac monitoring; Complete Time: 05:47 rn 10/05 04:57 Order name: EKG - Nurse/Tech; Complete Time: 05:29 rn 10/05 04:57 Order name: IV Saline Lock; Complete Time: 05:47 rn 10/05 04:57 Order name: Labs collected and sent; Complete Time: 05:47 rn 10/05 04:57 Order name: O2 Per Protocol; Complete Time: 05:18 rn 10/05 04:57 Order name: O2 Sat Monitoring; Complete Time: 05:18 rn 10/05 07:13 Order name: CONS Physician Consult; Complete Time: 07:32 EDMS Administered Medications: 05:18 Drug: cloNIDine 0.2 mg Route: PO; jb4 06:00 Follow up: Response: No adverse reaction; Blood pressure is lowered jb4 07:33 Follow up: Response: No adverse reaction bw 06:33 Drug: Lasix (furosemide) 40 mg Route: IVP; Site: right antecubital; jb4 08:18 Follow up: Response: No adverse reaction bw Disposition: 10/05/20 08:30 Patient has left against medical advice. - Patients states they are going to Home. - Condition is Serious. Signatures: Dispatcher [employer] EDNV Selene Gramajo Corey, MD MD cha Munoz, Edgar RN Roberto Padron MD MD rn Smirch, Shelby, RN RN ss Get Irving RN RN jb4 Anai Smiley RN RN bw Corrections: (The following items were deleted from the chart) 06:14 05:59 CORONAVIRUS ordered. EDMS EDMS 07:53 06:26 Hospitalization Ordered by Jose Daniel Flores MD for Observation. Preliminary bd diagnosis is Pulmonary edema; Malignant Hypertension; Dyspnea, unspecified. Bed requested for Telemetry/MedSurg (observation). Status is Observation. Condition is Stable. Problem is an ongoing problem. Symptoms have improved. rn 08:28 07:53 10/05/2020 06:26 Hospitalization Ordered by Jose Daniel Flores MD for Observation. ss Preliminary diagnosis is Pulmonary edema; Malignant Hypertension; Dyspnea, unspecified. Bed requested for Telemetry/MedSurg (observation). Status is Observation. Condition is Stable. Problem is an ongoing problem. Symptoms have improved. bd 08:31 08:30 10/05/2020 08:30 Patients has left against medical advice. Patient states they ss are going to Home. Condition is Serious. bw
--- NOTE | 2020-10-05 06:27 | ER ---
Nurse's Notes [facility] Name: Apple Camara Age: 45 yrs Sex: Female : 1975 Arrival Date: 10/05/2020 Time: 04:41 Bed 18 Private MD: Diagnosis: Presentation: 10/05 04:51 Chief complaint: Patient states: shortness of breath for 1 week, also reports chest em pain and productive cough, denies fever. Coronavirus screen: Client denies travel out of the [place] in the last 14 days. cough unrelated to allergies, difficulty breathing, Client presents with at least one sign or symptom that may indicate coronavirus-19. Standard/surgical mask placed on the client. Provider contacted for isolation considerations. Ebola Screen: Patient negative for fever greater than or equal to 101.5 degrees Fahrenheit, and additional compatible Ebola Virus Disease symptoms Patient denies exposure to infectious person. Patient denies travel to an Ebola-affected area in the 21 days before illness onset. No symptoms or risks identified at this time. Initial Sepsis Screen: Does the patient meet any 2 criteria? RR > 20 per min. HR > 90 bpm. No. Patient's initial sepsis screen is negative. Does the patient have a suspected source of infection? No. Patient's initial sepsis screen is negative. If YES to both, name of provider notified: Roberto Flores MD. Risk Assessment: Do you want to hurt yourself or someone else? Patient reports no desire to harm self or others. Onset of symptoms was August 2020. 04:51 Method Of Arrival: Wheelchair em 04:51 Acuity: JOSE 2 em Historical: - Allergies: 04:56 Motrin; em 04:56 PENICILLINS; em - PMHx: 04:56 Hypertension; em - PSHx: 04:56 ; em - Immunization history:: Adult Immunizations up to date. - Social history:: Smoking status: Patient reports the use of cigarette tobacco products, denies chronic smoking, but will smoke occasionally. - Family history:: not pertinent. - Hospitalizations: : No recent hospitalization is reported. Screenin:00 Abuse screen: Denies threats or abuse. Nutritional screening: No deficits noted. jb4 Tuberculosis screening: No symptoms or risk factors identified. Fall Risk None identified. Assessment: 05:00 General: Appears in no apparent distress. uncomfortable, Behavior is calm, cooperative, jb4 appropriate for age. Pain: Complains of pain in right ribs Pain does not radiate. Pain currently is 6 out of 10 on a pain scale. Neuro: Level of Consciousness is awake, alert, obeys commands, Oriented to person, place, time, situation. Cardiovascular: Patient's skin is warm and dry. Respiratory: Airway is patent Respiratory effort is even, unlabored, Respiratory pattern is regular, symmetrical, Breath sounds are clear bilaterally. GI: No signs and/or symptoms were reported involving the gastrointestinal system. : No signs and/or symptoms were reported regarding the genitourinary system. EENT: No signs and/or symptoms were reported regarding the EENT system. Derm: Skin is intact, Skin is dry, Skin is normal, Skin temperature is warm. Musculoskeletal: Circulation, motion, and sensation intact. Range of motion: intact in all extremities. 06:00 Reassessment: Patient appears in no apparent distress at this time. Patient and/or jb4 family updated on plan of care and expected duration. Pain level reassessed. Patient is alert, oriented x 3, equal unlabored respirations, skin warm/dry/pink. Pt is resting peacefully in bed with eyes closed, respirations are even and unlabored with no s/s of pain or distress noted. 08:22 Reassessment: Pt signing out AMA. reeducated patient on the importance of staying in [facility] for care and the possible risks of leaving AMA. pt verbalized understanding and states she will come back. Reported to MD and charge. Vital Signs: 04:51 BP 191 / 130; Pulse 113; Resp 24; Temp 97.8; Pulse Ox 100% on R/A; Pain 6/10; em 06:00 BP 178 / 129; Pulse 102; Resp 20; Pulse Ox 98% on R/A; jb4 06:30 BP 176 / 120; Pulse 101; Resp 24; Pulse Ox 100% on R/A; jb4 ED Course: 04:41 Patient arrived in ED. ag3 04:44 Roberto Flores MD is Attending Physician. rn 04:54 Triage completed. em 04:56 Arm band placed on. em 05:08 XRAY CXR (1 view) In Process Unspecified. EDMS 05:13 Get Irving, RN is Primary Nurse. jb4 05:40 Inserted saline lock: 18 gauge in right antecubital area, using aseptic technique. jb4 Blood collected. 05:40 Initial lab(s) drawn, by md, sent to lab. First set of blood cultures drawn. jb4 05:55 Second set of blood cultures drawn. jb4 06:26 Jose Daniel Flores MD is Hospitalizing Provider. rn 07:33 Blood Culture Adult (2) Sent. bw 07:33 BMP Sent. bw 07:33 CBC with Diff Sent. bw 08:26 No provider procedures requiring assistance completed. IV discontinued, intact, ss bleeding controlled, No redness/swelling at site. Pressure dressing applied. 08:31 Attending Physician role handed off by Roberto Flores MD 08:31 Primary Nurse role handed off by Get Irving, RN Administered Medications: 05:18 Drug: cloNIDine 0.2 mg Route: PO; jb4 06:00 Follow up: Response: No adverse reaction; Blood pressure is lowered jb4 07:33 Follow up: Response: No adverse reaction bw 06:33 Drug: Lasix (furosemide) 40 mg Route: IVP; Site: right antecubital; jb4 08:18 Follow up: Response: No adverse reaction Outcome: 06:26 Decision to Hospitalize by Provider. rn 08:26 AMA AMA form signed 08:26 Condition: stable 08:26 Instructed on follow up and referral plans. the need for admit. 08:30 Patient left the ED. 08:31 Patient left the ED. Signatures: Dispatcher [employer] Emory Cooley RN ANTHONY Roberto Flores MD MD rn Smirch, Shelby, RN RN Get Irving, Nisa Henriquez RN, Bethany, RN RN
[2020-10-05] MEDS ORDERED: FUROSEMIDE 40 MG/4 ML VIAL ONE (06:47)
--- NOTE | 2020-10-05 07:19 | P.HP ---
Certification for Inpatient Patient admitted to: Observation With expected LOS: <2 Midnights Practitioner: I am a practitioner with admitting privileges, knowledge of patient current condition, hospital course, and medical plan of care. Services: Services provided to patient in accordance with Admission requirements found in Title 42 Section 412.3 of the Code of Federal Regulations Patient History Date of Service: 10/05/20 Reason for admission: new CHF exacerbation History of Present Illness: 45yo F, PMH: HTN, presents to ED due to worsening SOB/RODRIGUES and lower extremity swelling over the last 1 month. She stats this has been intermittent over the last several months, but now "sticking around longer" and worse. She reports being more tired, wakes up in middle of night gasping for air at times, snores. She has h/o HTN and has not taken her medications in several months. She denies any recent illness / fever / chills / n / v / diarrhea. She also endorses intermittent chest pain over the last few months as well, becoming more frequent lately. Last episode was yesterday. Workup in ED revealed elevated BPN, trop: 0.03, CXR With pulm edema. Patient likely with new CHF exacerbation. BP: 190/110s, tachypneic and dyspneic with a few steps. Allergies NKDA Allergy (Uncoded 02/21/18 09:31) Unknown No Known Allergies Allergy (Uncoded 02/21/18 09:31) Unknown - Past Medical/Surgical History -: HTN -: - Family History Family History: Reviewed- Non-Contributory - Social History Smoking Status: Current every day smoker Alcohol use: No Place of Residence: Home Review of Systems 10-point ROS is otherwise unremarkable Physical Examination - Studies Laboratory Data (last 24 hrs) 10/05/20 05:40: WBC 8.10, Hgb 10.3 L, Hct 32.1 L, Plt Count 405 10/05/20 05:40: Sodium 141, Potassium 3.1 L, BUN 18, Creatinine 0.92, Glucose 101, Total Bilirubin 0.3, AST 43 H, ALT 57, Alkaline Phosphatase 83 Assessment and Plan - Advance Directives Does patient have a Living Will: No Does patient have a Durable POA for Healthcare: No Physician Review Additional Text: Physical Exam: Gen: mild distress, tachypneic HEENT: normal conjunctiva, sclera anicteic Pulm: diffuse crackles, mild tachypnea CV: RRR, no murmur Abd: soft, NTND Ext: no rash, no lesion. 2+ edema to b/l knees Neuro: AAOx3, appears somewhat sleepy, moves all extremities, no focal finding Problem List Shortness of Breath/ Dyspnea secondary to new onset /acute CHF Exacerbation Hypertension Presumed Obstructive sleep apnea -admit, start ACEI, IV Lasix, strict I/O's -CHF exacerbation likely due to uncontrolled HTN -seems to be new onset CHF, will obtain TTE -cardiology consulted -titrate BP meds as needed VTE: lovenox Code: full Dispo: anticipate dc home in 24-48hrs Time Spent Managing Pts Care (In Minutes): 60
[2020-10-05 08:58] VITALS: TEMP 97.8
[2020-10-05 08:59] VITALS: BP 176/120; O2SAT 100
--- NOTE | 2020-10-05 09:44 | RAD REPORT ---
EXAM DESCRIPTION: Chest Radiography COMPARISON: Chest radiograph August 19, 2020 report only CLINICAL HISTORY: [facility] DYSPNE[facility] FINDINGS: A single AP view of the chest demonstrates an enlarged cardiomediastinal silhouette. No pneumothorax or definite pleural effusion. Bilateral perihilar opacities are present. Osseous structures are intact. IMPRESSION: Cardiomegaly with pulmonary edema. Pneumonia is not excluded. Electronically signed by: Eduard An MD 10/05/2020 5:16 AM CDT Due to temporary technical issues with the PACS/Fluency reporting system, reports are being signed by the in house radiologist without review as a courtesy to ensure prompt reporting. The interpreting r adiologist is fully responsible for the content of the report.
--- NOTE | 2020-10-06 06:54 | EKG ---
Test Date: 2020-10-05 Test Time: 05:22:55 Failure Analysis Technician: DARIANA MEASUREMENT RESULTS: Intervals: Rate: 105 DE: 120 QRSD: 80 QT: 354 QTc: 467 [place]: P: 55 DE: 120 QRS: -30 T: 58 INTERPRETIVE STATEMENTS: Sinus tachycardia Left axis deviation Inferior infarct, age undetermined Possible Anterior infarct, age undetermined Abnormal ECG Compared to ECG 08/20/2020 00:58:47 Ventricular premature complex(es) no longer present Left ventricular hypertrophy no longer present T-wave abnormality no longer present Possible ischemia no longer present Myocardial infarct finding still present Electronically Signed On 10-06-20 06:52:55 CDT by Hugh Polanco
--- NOTE | 2020-10-06 19:38 | CON ---
Date of Consultation: 10/05/2020 Additional Admitting Physician: Dr. Flores. Reason For Consultation: New onset congestive heart failure. History Of Present Illness: Ms. Camara is a 45-year-old white woman. Has had a history of hypertensi on. She is typically taking lisinopril at home. She came in with shortness of breath, PND, orthopne a, pedal edema. No palpitation. No syncope. No chest pain. Denied any nausea, vomiting, diaphores is. Denied palpitation. Denied syncope. Denied any fever or chills. Chest x-ray showed mild CHF. Rest of the blood work was unremarkable. Allergies: SHE IS ALLERGIC TO MOTRIN AND PENICILLIN. Review of Systems: Negative. Social History: Negative. Family History: Positive for hypertension. Physical Examination: Vital Signs: Stable. Afebrile. She was hypertensive. HEENT: Negative. Neck: Supple with no bruit. Chest: Clear to auscultation and percussion. Cardiac: Revealed a regular rhythm and rate, S4 gallops. No murmurs or rubs. Abdomen: Obese, but benign. Extremities: Revealed 1+ edema. Diagnostic Studies: Her EKG showed LVH. Her BNP was 1073. Chest x-ray showed cardiomegaly, mild CH F. Impression And Plan: Probable acute diastolic congestive heart failure. She needs to be on Lasix. She needs to be on metoprolol. She needs to be on JOHNY inhibitor. Echocardiogram is pending. She ne eds fluid restriction and salt restriction. May be readmitted to do an outpatient stress test on her down the road. We will see what the echocardiogram shows before making further decisions. LEODAN/HANNAH Voice ID: [id number] Report ID: [id number]
== END 2020-10-05 08:31 | disposition left against medical advice (07) ==
LOC: ER 04:38 → UNDOADMIN 07:39 → ERHOLD 07:39
DX: I50.9 Heart failure, unspecified (principal); R06.00 Dyspnea, unspecified; I10 Essential (primary) hypertension; F17.210 Nicotine dependence, cigarettes, uncomplicated; Z20.822 Contact with and (suspected) exposure to COVID-19; Z88.0 Allergy status to penicillin; Z88.6 Allergy status to analgesic agent
CPT/HCPCS: 87040 ×2; 85025; 80048; 36415; 80076; 84484; 84145; 83880; 71045; U0003; J1940; 93005; 96374; 99284

== ENCOUNTER 2020-10-05 22:38 | Observation (INO) | payer OTHER ==
[2020-10-05 23:18] LABS: Basophils % 1.1 % (0-1.3); Hematocrit 33.9 % (36.0-45.0); Lymphocytes % 22.2 % (15.3-44.8); MPV 8.4 fL (7.6-11.3); RBC Red Blood Cell Count 3.93 M/uL (3.86-4.86)
--- NOTE | 2020-10-05 23:35 | ER ---
Nurse's Notes [facility] Name: Apple Camara Age: 45 yrs Sex: Female : 1975 Arrival Date: 10/05/2020 Time: 22:39 Bed 18 Private MD: Diagnosis: Pulmonary edema;Dyspnea, unspecified Presentation: 10/05 22:45 Chief complaint: Patient states: i left AMA last night supposed to be for admission for mg2 CHF. I went home because of my kids., Im back to be admitted now. Coronavirus screen: Client denies travel out of the [place] in the last 14 days. Ebola Screen: No symptoms or risks identified at this time. Initial Sepsis Screen: Does the patient meet any 2 criteria? No. Patient's initial sepsis screen is negative. Does the patient have a suspected source of infection? No. Patient's initial sepsis screen is negative. Risk Assessment: Do you want to hurt yourself or someone else? Patient reports no desire to harm self or others. Onset of symptoms was October 04, 2020. 22:45 Method Of Arrival: Ambulatory mg2 22:45 Acuity: JOSE 3 mg2 RN ADMISSION: 10/06 00:46 lmp unknown mg2 Historical: - Allergies: 10/05 22:48 Motrin; mg2 22:48 PENICILLINS; mg2 - PMHx: 22:48 Hypertension; mg2 - PSHx: 22:48 ; mg2 - Immunization history:: Flu vaccine is not up to date. - Social history:: Smoking status: Patient reports the use of cigarette tobacco products, Patient/guardian denies using alcohol, street drugs, IV drugs. - Family history:: not pertinent. - Hospitalizations: : No recent hospitalization is reported. Screenin:31 Abuse screen: Denies threats or abuse. Nutritional screening: No deficits noted. vg1 Tuberculosis screening: No symptoms or risk factors identified. Fall Risk No fall in past 12 months (0 pts). No secondary diagnosis (0 pts). IV access (20 points). Ambulatory Aid- None/Bed Rest/Nurse Assist (0 pts). Gait- Normal/Bed Rest/Wheelchair (0 pts) Mental Status- Oriented to own ability (0 pts). Total Malloy Fall Scale indicates No Risk (0-24 pts). Assessment: 23:00 General: Appears in no apparent distress. comfortable, Behavior is calm, cooperative. vg1 Pain: Complains of pain in chest Pain radiates to left arm Pain currently is 4 out of 10 on a pain scale. Neuro: Level of Consciousness is awake, alert, obeys commands, Oriented to person, place, time, situation. Cardiovascular: Heart tones S1 S2 Patient's skin is warm and dry. Respiratory: Airway is patent Respiratory effort is even, unlabored, Breath sounds are clear bilaterally. GI: No signs and/or symptoms were reported involving the gastrointestinal system. : No signs and/or symptoms were reported regarding the genitourinary system. EENT: No signs and/or symptoms were reported regarding the EENT system. Derm: Skin is intact, Skin is pink, warm \T\ dry. Musculoskeletal: Circulation, motion, and sensation intact. 10/06 00:20 Reassessment: seen by [facility] hospitalist for admission. mg2 Vital Signs: 10/05 22:45 BP 164 / 110; Pulse 103; Resp 20; Temp 97.8; Pulse Ox 100% on R/A; Weight 108.86 kg; mg2 Height 5 ft. 5 in. (165.10 cm); Pain 0/10; 23:00 BP 147 / 83; Pulse 105; Resp 20; Pulse Ox 100% on R/A; vg1 10/06 00:30 BP 148 / 83; Pulse 94; Resp 18; Pulse Ox 100% on R/A; mg2 10/05 22:45 Body Mass Index 39.94 (108.86 kg, 165.10 cm) mg2 ED Course: 10/05 22:39 Patient arrived in ED. cl3 22:39 Roberto Flores MD is Attending Physician. rn 22:47 Triage completed. mg2 22:48 Arm band placed on. mg2 22:50 Sasha Edge, ANTHONY is Primary Nurse. vg1 23:06 EKG done, by ED staff, reviewed by Roberto Flores MD. vg1 23:10 Inserted saline lock: 20 gauge in left antecubital area, using aseptic technique. Blood fu collected. 23:25 XRAY Chest (1 view) In Process Unspecified. EDMS 23:31 Patient has correct armband on for positive identification. Placed in gown. Bed in low vg1 position. Call light in reach. Side rails up X2. 23:34 Arthur Brumfield DO is Hospitalizing Provider. rn 10/06 00:01 Report given to ANTHONY Zapata. vg1 00:45 No provider procedures requiring assistance completed. Patient admitted, IV remains in mg2 place. Administered Medications: 10/05 23:43 Drug: Lasix (furosemide) 40 mg Route: IVP; Site: left antecubital; vg1 Outcome: 23:34 Decision to Hospitalize by Provider. rn 10/06 00:45 Admitted to Med/surg accompanied by nurse, via wheelchair, room 223, with chart, Report mg2 called to ANTHONY Julian Condition: stable Instructed on the need for admit, Demonstrated understanding of instructions. 00:54 Patient left the ED. mg2 Signatures: Dispatcher [employer] EDMS Roberto Flores MD MD rn Umadhay, Felix, RN Benny Mosher, Danica Caro RN, Victoria, RN RN vg1 Corrections: (The following items were deleted from the chart) 10/05 22:47 22:45 Resp 20bpm; Pulse Ox 100% RA; Temp 97.8F; 108.86 kg; Height 5 ft. 5 in.; BMI: mg2 39.9; Pain 0/10; mg2
--- NOTE | 2020-10-05 23:35 | EDPHYS ---
Physician Documentation [facility] Name: Apple Camara Age: 45 yrs Sex: Female : 1975 Arrival Date: 10/05/2020 Time: 22:39 Bed 18 Private MD: ED Physician Roberto Flores HPI: 10/05 23:28 This 45 yrs old Black Female presents to ER via Ambulatory with complaints of sob. rn 23:28 The patient has shortness of breath with light activity. Onset: The symptoms/episode rn began/occurred at an unknown time. Duration: The symptoms are intermittent. The patient's shortness of breath is aggravated by exertion, light activity. Associated signs and symptoms: Pertinent positives: swelling, Pertinent negatives: non-productive cough, productive cough, fever, hemoptysis. Severity of symptoms: At their worst the symptoms were mild in the emergency department the symptoms are unchanged. The patient has experienced a previous episode. The patient has been recently seen at the [facility] Emergency Department. Was going to be admitted by me this morning for likely new onset CHF 2/2 uncontrolled HTN, left AMA when said couldn't stay due to children at home needed to be cared for. No new symptoms. Still with dyspnea but reports urinated about 9 times after lasix I gave her this AM.. 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 - Social history:: Smoking status: Patient reports the use of cigarette tobacco products, Patient/guardian denies using alcohol, street drugs, IV drugs. - Family history:: not pertinent. - Hospitalizations: : No recent hospitalization is reported. ROS: 23:28 Constitutional: Negative for fever, chills, and weight loss, Eyes: Negative for injury, rn pain, redness, and discharge, Neck: Negative for injury, pain, and swelling, Cardiovascular: Negative for chest pain, palpitations, + edema Respiratory: Negative for cough, wheezing, and pleuritic chest pain, + sob Abdomen/GI: Negative for abdominal pain, nausea, vomiting, diarrhea, and constipation, MS/Extremity: Negative for injury and deformity, Skin: Negative for injury, rash, and discoloration, Neuro: Negative for headache, weakness, numbness, tingling, and seizure. 23:28 All other systems are negative. Exam: 23:28 Constitutional: This is a well developed, well nourished patient who is awake, alert, rn mild tachypnea Head/Face: Normocephalic, atraumatic. Eyes: Periorbital areas with no swelling, redness, or edema. ENT: No stridor Cardiovascular: Tachycardic, regular. No pulse deficits. Respiratory: + mild tachypnea, still diminished at bases, no retractions Abdomen/GI: soft, non-tender Skin: Warm, dry MS/ Extremity: Pulses equal, no cyanosis. Equal circumference. 1+ edema bilateral lower ext. Neuro: Awake and alert, GCS 15 Vital Signs: 22:45 BP 164 / 110; Pulse 103; Resp 20; Temp 97.8; Pulse Ox 100% on R/A; Weight 108.86 kg; mg2 Height 5 ft. 5 in. (165.10 cm); Pain 0/10; 23:00 BP 147 / 83; Pulse 105; Resp 20; Pulse Ox 100% on R/A; vg1 04 00:30 BP 148 / 83; Pulse 94; Resp 18; Pulse Ox 100% on R/A; mg2 10/05 22:45 Body Mass Index 39.94 (108.86 kg, 165.10 cm) mg2 MDM: 10/05 22:39 Patient medically screened. rn 23:28 Differential diagnosis: pulmonary edema. Data reviewed: vital signs, nurses notes, old rn medical records, lab test result(s), radiologic studies, and as a result, I will admit patient. Counseling: I had a detailed discussion with the patient and/or guardian regarding: the historical points, exam findings, and any diagnostic results supporting the discharge/admit diagnosis, lab results, radiology results, the need for further work-up and treatment in the hospital. Admission orders: after a detailed discussion of the patient's condition and case, the admit orders are written by me. 10/05 22:41 Order name: Basic Metabolic Panel rn 10/05 22:41 Order name: CBC with Diff rn 10/05 22:41 Order name: NT PRO-BNP rn 10/05 22:41 Order name: Troponin (emerg Dept Use Only) rn 10/05 22:41 Order name: Basic Metabolic Panel EDND 10/05 22:41 Order name: NT PRO-BNP EDND 10/05 22:41 Order name: XRAY Chest (1 view) rn 10/05 22:41 Order name: EKG; Complete Time: 22:41 rn 10/05 22:41 Order name: Cardiac monitoring; Complete Time: 23:06 rn 10/05 22:41 Order name: EKG - Nurse/Tech; Complete Time: 23:06 rn 10/05 22:41 Order name: IV Saline Lock; Complete Time: 23:06 rn 10/05 22:41 Order name: Labs collected and sent; Complete Time: 23:06 rn 10/05 22:41 Order name: Troponin (Emerg Dept Use Only) EDND 10/05 22:41 Order name: O2 Per Protocol; Complete Time: 22:51 rn 10/05 22:41 Order name: O2 Sat Monitoring; Complete Time: 22:51 rn Administered Medications: 23:43 Drug: Lasix (furosemide) 40 mg Route: IVP; Site: left antecubital; vg1 Disposition: 10/05/20 23:34 Hospitalization ordered by Arthur Brumfield for Observation. Preliminary diagnosis are Pulmonary edema, Dyspnea, unspecified. - Bed requested for Telemetry/MedSurg (observation). - Status is Observation. mg2 - Condition is Stable. - Problem is an ongoing problem. - Symptoms have improved. Signatures: Dispatcher [employer] EDND Roberto Flores MD MD rn Garcia, Cindy, RN RN cg Benny Shahid RN RN mg2 Garcia, Victoria, RN RN vg1 Corrections: (The following items were deleted from the chart) 10/06 00:35 10/05 23:34 Hospitalization Ordered by Arthur Brumfield DO for Observation. Preliminary cg diagnosis is Pulmonary edema; Dyspnea, unspecified. Bed requested for Telemetry/MedSurg (observation). Status is Observation. Condition is Stable. Problem is an ongoing problem. Symptoms have improved. rn 10/06 00:54 00:35 10/05/2020 23:34 Hospitalization Ordered by Arthur Brumfield DO for Observation. mg2 Preliminary diagnosis is Pulmonary edema; Dyspnea, unspecified. Bed requested for Telemetry/MedSurg (observation). Status is Observation. Condition is Stable. Problem is an ongoing problem. Symptoms have improved. cg
[2020-10-05 23:50] LABS: Potassium 3.4 mmol/L (3.5-5.1); Troponin (Emerg Dept Use Only) 0.03 ng/mL (0.0-0.045)
[2020-10-05] MEDS ORDERED: FUROSEMIDE 40 MG/4 ML VIAL ONE (23:57)
[2020-10-06 01:11] VITALS: BMI 48.6
[2020-10-06] MEDS ORDERED: ONDANSETRON 4 MG/2 ML VIAL IV PRN (01:12)
--- NOTE | 2020-10-06 01:13 | P.HP ---
Certification for Inpatient Patient admitted to: Observation With expected LOS: <2 Midnights Patient will require the following post-hospital care: None Practitioner: I am a practitioner with admitting privileges, knowledge of patient current condition, hospital course, and medical plan of care. Services: Services provided to patient in accordance with Admission requirements found in Title 42 Section 412.3 of the Code of Federal Regulations Patient History Date of Service: 10/06/20 Primary Care Provider: None Reason for admission: New onset CHF History of Present Illness: 45-year-old female with history of hypertension presents emergency department for shortness of breath, pedal edema. Patient was admitted yesterday but decided to leave against medical advice to deal with some family issues. Patient reports that she has had increasing shortness breath over the course of the last 1 month with dyspnea on exertion and at rest. Upon arrival to the emergency department for admission yesterday patient was significantly hypertensive with blood pressures in the 190s over 110. Patient was diuresed and given some blood pressure medications while she was in the hospital then left AMA, patient returned to the hospital for further evaluation and management. Patient again evaluated in the emergency department patient some clinical improvement from previous visit, blood pressure currently around 150/90, troponin 0.03 BNP 1073 hemoglobin 10.6 hematocrit 33.9. ED provider wishes to admit for further evaluation and management. Allergies ibuprofen [From Motrin] Allergy (Verified 10/06/20 01:08) Hives/Rash Penicillins Allergy (Verified 10/06/20 01:08) Anaphylaxis - Past Medical/Surgical History Has patient received pneumonia vaccine in the past: No -: HTN -: Psychosocial/ Personal History: Unemployed, lives alone - Social History Smoking Status: Light Tobacco smoker (1-9 cigarettes/day) Counseled patient to stop smoking for: less than 10 minutes Alcohol use: No CD- Drugs: No Caffeine use: Yes Place of Residence: Home Review of Systems 10-point ROS is otherwise unremarkable Respiratory: Shortness of Breath, SOB with Excertion Cardiovascular: Paroxysmal Noc. Dyspnea, Edema Physical Examination - Physical Exam General: Alert, In no apparent distress HEENT: Atraumatic, PERRLA, Mucous membr. moist/pink Neck: Supple, 2+ carotid pulse no bruit, No LAD Respiratory: Clear to auscultation bilaterally, Normal air movement Cardiovascular: Regular rate/rhythm, Normal S1 S2, Edema (1+ pitting edema bilateral) Gastrointestinal: Normal bowel sounds, No tenderness Musculoskeletal: No tenderness Integumentary: No rashes Neurological: Normal speech, Normal strength at 5/5 x4 extr, Normal tone, Normal affect Lymphatics: No axilla or inguinal lymphadenopathy - Studies Laboratory Data (last 24 hrs) 10/05/20 23:10: WBC 9.00, Hgb 10.6 L, Hct 33.9 L, Plt Count 432 H 10/05/20 23:10: Sodium 143, Potassium 3.4 L, BUN 18, Creatinine 1.09, Glucose 116 H Assessment and Plan - Plan Assessment Dyspnea, pedal edema likely secondary to new onset congestive heart failure Hypertension Plan Dyspnea, pedal edema likely secondary to new onset congestive heart failure: Cardiology consult in place, 1500 cc per day fluid restriction, daily weights. Continue with lisinopril, metoprolol, Lasix. Echocardiogram ordered, DVT prophylaxis Lovenox 40 mg subcutaneous once daily. Patient doing better than she was yesterday already, possible discharge this evening if patient continues to do well and is cleared by cardiology. Hypertension: Patient not previously taking any medications, have initiated therapy with lisinopril/metoprolol. Appreciate further input from cardiology. Discharge Plan: Home Plan to discharge in: 24 Hours - Advance Directives Does patient have a Living Will: No Does patient have a Durable POA for Healthcare: No - Code Status/Comfort Care Code Status Assessed: Yes (Full code) Critical Care: No Time Spent Managing Pts Care (In Minutes): 55
[2020-10-06 04:36] LABS: Absolute Lymphocytes (CBC) 2.3 K/uL (0.7-4.9); Basophils % 0.9 % (0-1.3); Hematocrit 32.6 % (36.0-45.0); Lymphocytes % 26.3 % (15.3-44.8); RBC Red Blood Cell Count 3.78 M/uL (3.86-4.86)
[2020-10-06 04:44] LABS: Urine Appearance CLEAR (Clear); Urine Bilirubin NEGATIVE (Negataive); Urine Blood NEGATIVE (Negative); Urine Color YELLOW (Yellow); Urine Glucose NEGATIVE (Negative); Urine Protein NEGATIVE (Negative); Urine Specific Gravity <=1.005 (1.005-1.030); Urine Urobilinogen 0.2 mg/dL (0.2-1.0)
[2020-10-06 04:58] LABS: Urine Microscopic Reflex NO UMIC
[2020-10-06 05:02] LABS: Bilirubin Total 0.2 mg/dL (0.2-1.0); Magnesium 1.9 mg/dL (1.8-2.4); Phosphorus 4.3 mg/dL (2.5-4.9); Potassium 3.2 mmol/L (3.5-5.1); Thyroid Stimulating Hormone 2.31 uIU/mL (0.360-3.740)
[2020-10-06] MEDS ORDERED: METOPROLOL TAR 25 MG TAB PO SCH (06:00)
--- NOTE | 2020-10-06 06:52 | EKG ---
Test Date: 2020-10-05 Test Time: 23:01:50 Check Processing Clerk: KATHLEEN MEASUREMENT RESULTS: Intervals: Rate: 97 MN: 118 QRSD: 66 QT: 432 QTc: 548 [place]: P: 61 MN: 118 QRS: -26 T: 53 INTERPRETIVE STATEMENTS: Normal sinus rhythm Anterior infarct, age undetermined Abnormal ECG Compared to ECG 10/05/2020 05:22:55 Sinus tachycardia no longer present Left-axis deviation no longer present Myocardial infarct finding still present Electronically Signed On 10-06-20 06:51:22 CDT by Hugh Polanco
--- NOTE | 2020-10-06 07:38 | RAD REPORT ---
EXAM DESCRIPTION: Karthik Single View10/05/2020 11:25 pm CLINICAL HISTORY: Shortness of breath COMPARISON: October 05 FINDINGS: Upper lobe vessels are prominent indicative of pulmonary venous hypertension. The lungs appear clear of acute infiltrate. The heart is mildly to moderately enlarged
[2020-10-06] MEDS: FUROSEMIDE 40 MG/4 ML VIAL IV SCH ×2 (08:57→17:00)
[2020-10-06] MEDS: ENOXAPARIN 40 MG/0.4 ML SQ SCH (08:59)
[2020-10-06] MEDS ORDERED: lisinopriL 20 MG TAB PO SCH (09:00)
[2020-10-06] MEDS: lisinopriL 20 MG TAB PO SCH ×2 (09:00→20:59)
--- NOTE | 2020-10-06 11:21 | P.DS ---
Admission Date: 10/06/20 Discharge Date: 10/06/20 Primary Care Provider: None Disposition: ROUTINE DISCHARGE Discharge Condition: GOOD Reason for Admission: New onset CHF Consultations: Cardiology-Dr. Polanco Procedures: COVID: Negative CXR: ECHO: Medical Problem List: Assessment Dyspnea, pedal edema likely secondary to new onset congestive heart failure Hypertension Plan Dyspnea, pedal edema likely secondary to new onset congestive heart failure: Cardiology consult in place, 1500 cc per day fluid restriction, daily weights. Continue with lisinopril, metoprolol, Lasix. Echocardiogram ordered, DVT prophylaxis Lovenox 40 mg subcutaneous once daily. Patient doing better than she was yesterday already, possible discharge this evening if patient continues to do well and is cleared by cardiology. Hypertension: Patient not previously taking any medications, have initiated therapy with lisinopril/metoprolol. Appreciate further input from cardiology. Discharge Plan: Home Plan to discharge in: 24 Hours - Advance Directives Vital Signs/Physical Exam: Temp Pulse Resp BP Pulse Ox 98.7 F 102 H 32 H 174/99 H 99 10/06/20 08:00 10/06/20 08:57 10/06/20 08:00 10/06/20 08:57 10/06/20 08:00 Laboratory Data at Discharge: WBC 8.80 K/uL (4.3-10.9) 10/06/20 04:02 Hgb 10.3 g/dL (12.0-15.0) L 10/06/20 04:02 Hct 32.6 % (36.0-45.0) L 10/06/20 04:02 Plt Count 381 K/uL (152-406) 10/06/20 04:02 Sodium 141 mmol/L (136-145) 10/06/20 04:02 Potassium 3.2 mmol/L (3.5-5.1) L 10/06/20 04:02 BUN 18 mg/dL (7-18) 10/06/20 04:02 Creatinine 1.05 mg/dL (0.55-1.3) 10/06/20 04:02 Glucose 100 mg/dL (74-106) 10/06/20 04:02 Phosphorus Cancelled 10/06/20 05:00 Magnesium 1.9 mg/dL (1.8-2.4) 10/06/20 04:02 Total Bilirubin 0.2 mg/dL (0.2-1.0) 10/06/20 04:02 AST 30 U/L (15-37) 10/06/20 04:02 ALT 51 U/L (12-78) 10/06/20 04:02 Alkaline Phosphatase 79 U/L (45-117) 10/06/20 04:02 Triglycerides 185 mg/dL (<150) H 10/06/20 04:02 Cholesterol 133 mg/dL (<200) 10/06/20 04:02 HDL Cholesterol 54 mg/dL (40-60) 10/06/20 04:02 Cholesterol/HDL Ratio 2.46 10/06/20 04:02 Home Medications: NK [No Home Meds] 10/06/20 Followup: Unknown,U [Primary Care Provider] -
[2020-10-06] MEDS ORDERED: TRAMADOL HCL 50 MG TAB PO PRN (12:59)
--- NOTE | 2020-10-06 13:54 | P.PN ---
Subjective Date of Service: 10/06/20 Primary Care Provider: None Chief Complaint: New onset CHF Subjective: Improving, Doing well Physical Examination - Vital Signs Temperature: 98.6 F Blood Pressure: 137/86 Pulse: 83 Respirations: 24 Pulse Ox (%): 97 - Studies Laboratory Data (last 24 hrs) 10/05/20 23:10: WBC 9.00, Hgb 10.6 L, Hct 33.9 L, Plt Count 432 H 10/05/20 23:10: Sodium 143, Potassium 3.4 L, BUN 18, Creatinine 1.09, Glucose 116 H Assessment & Plan Discharge Plan: Home Plan to discharge in: 24 Hours Physician Review Additional Text: Physical exam: Patient alert, cooperative. Blood pressure still slightly elevated. Heart: Regular rate and rhythm Lungs: Slight crackles to the bases Abdomen: Soft nontender nondistended Extremities: Good range of motion. No focal deficits. No significant edema. Assessment Dyspnea, pedal edema likely secondary to new onset acute congestive heart failure, diastolic dysfunction with pulmonary hypertension Pulmonary hypertension Suspect underlying obstructive sleep apnea Obesity, BMI greater than 40 Plan Dyspnea, pedal edema likely secondary to new onset acute congestive heart failure, diastolic dysfunction with pulmonary hypertension: Spoke with cardiology. Cardiology recommends cardiac stress test to further evaluate her condition. Continue with aggressive IV diuresis. Teach on 1500 cc/day fluid restriction. Patient with pulmonary hypertension. Will consult pulmonology to further evaluate and address. Continue DVT prophylaxis. Continue blood pressure medication. Await findings from cardiac stress test tomorrow. Stable discharge as early as tomorrow. Pulmonary hypertension: Increase blood pressure medication for better control. We will continue to adjust. Await recommendations from cardiology. Will consult pulmonology to further evaluate. Suspect underlying obstructive sleep apnea: Patient should have sleep study to be done as an outpatient to further address. Obesity, BMI greater than 40: Will address lifestyle modification education. Time Spent Managing Pts Care (In Minutes): 55
[2020-10-06] MEDS: HYDROCODONE/APAP 7.5/325 MG TAB PO PRN (13:59)
--- NOTE | 2020-10-06 14:08 | ECHO ---
HEIGHT: 5 ft 5 in WEIGHT: 292 lb 1.6 oz DATE OF STUDY: 10/06/[address]: Dain Valentino NP 2-DIMENSIONAL: YES M.MODE: YES DOPPLER: YES COLOR FLOW: YES TDS: PORTABLE: DEFINITY: BUBBLE STUDY: DIAGNOSIS: NEW ONSET CONGESTIVE HEART FAILURE CARDIAC HISTORY: CATHERIZATION: SURGERY: PROSTHETIC VALVE: PACEMAKER: MEASUREMENTS (cm) DIASTOLIC (NORMALS) SYSTOLIC (NORMALS) IVSd (0.6-1.2) LA Diam (1.9-4.0) LVEF 45-50% LVIDd (3.5-5.7) LVIDs (2.0-3.5) %FS % LVPWd (0.6-1.2) Ao Diam (2.0-3.7) 2 DIMENSIONAL ASSESSMENT: RIGHT ATRIUM: NORMAL LEFT ATRIUM: NORMAL RIGHT VENTRICLE: NORMAL LEFT VENTRICLE: DEPRESSED TRICUSPID VALVE: MILD TRICUSPID REGURGITATION MITRAL VALVE: MILD MITRAL REGURGITATION PULMONIC VALVE: NORMAL AORTIC VALVE: NORMAL PERICARDIAL EFFUSION: NONE AORTIC ROOT: NORMAL LEFT VENTRICULAR WALL MOTION: MILD GLOBAL HYPOKINESIS DOPPLER/COLOR FLOW: SEE BELOW COMMENTS: MILDLY DEPRESSED LEFT VENTRICULAR EJECTION FRACTION 45-50 % WITH MILD GLOBAL HYPOKINESIS. SEVERE DIASTOLIC DYSFUNCTION (RESTRICTIVE) WITH HIGH FILLING PRESSURE. PULMONARY HYPERTENSION WITH RIGHT VENTRICULAR SYSTOLIC PRESSURE OF 55-60 mmHg. MILD TRICUSPID REGURGITATION, MILD MITRAL REGURGITATION. TECHNOLOGIST: TADEO PEREZ
--- NOTE | 2020-10-06 14:34 | RAD REPORT ---
EXAM DESCRIPTION: RAD - Chest Pa And Lat (2 Views) - 10/06/2020 2:23 pm CLINICAL HISTORY: Follow up CHF COMPARISON: Portable October 05 TECHNIQUE: Frontal and lateral views of the chest were obtained. FINDINGS: The lungs are slightly underinflated. Cardiomegaly is still present along with vascular en gorgement. Interstitial and alveolar opacities are slightly worse. Trachea is midline. No pleural e ffusion or pneumothorax seen. No acute bony finding noted. No aortic abnormality. IMPRESSION: Slight worsening of the CHF/volume overload pattern. No pleural effusions are identifiab le.
[2020-10-06] MEDS: METOPROLOL TAR 25 MG TAB PO SCH (18:00)
--- NOTE | 2020-10-06 18:14 | CON ---
Date of Consultation: 10/06/2020 Reason For Consultation: Congestive heart failure. History Of Present Illness: This is a 45-year-old female, history of depression, hypertension is unc ontrolled, presented to the emergency room with shortness of breath, orthopnea, and lower extremity e cyndi. Denies having any chest pain or exertional chest pain. Does not have any known cardiac histor y. Denies having cough or fever. Past Medical History: As outlined above in HPI. Medications: Refer to reconciliation sheet for detailed list. Allergies: IBUPROFEN AND PENICILLIN. Social History: She smokes half a pack per day. Does not drink. Does not use any drugs. Family History: No premature coronary artery disease or cancer. Review of Systems: All systems reviewed and they were negative except what mentioned in the HPI. Physical Examination: Vital Signs: Temperature is 98.6, pulse 83, breathing at 24, blood pressure is 137/86. General: Pleasant middle-aged female, obese, in no apparent distress. Head and Neck: Pupils are equal, reactive to light. Intact eye movements. No JVD. No cervical lym phadenopathy. Neck: Supple. Thyroid is not enlarged. Lungs: Clear to auscultation bilaterally. No rhonchi, rales, or crackles. No accessory muscle use. Heart: Regular rate and rhythm with S3. Abdomen: Soft, nontender. Bowel sounds positive. No organomegaly. No masses or hernia. No rigidi ty or rebound. Extremities: Edema bilaterally. No clubbing or cyanosis. Intact pulses. Skin: No rash noted. Neurologic: Alert, awake, oriented x3. No acute focal deficits appreciated. Investigations: NT-proBNP is 1073. Creatinine 1.05. Hemoglobin is 10.3. Assessment And Plan: Acute congestive heart failure. Echo showed EF of 45% to 50% with global hypok inesis. Troponin is negative. No chest pain. Recommend a nuclear stress test to further evaluate a nd Lasix 40 mg IV q.8 hours. Echo was reviewed and filling pressure is elevated and the right ventri cular systolic pressure is elevated, so I would recommend Lasix 40 mg IV q.8 hours until properly diu resed and stress test tomorrow morning and further plan accordingly. Thank you for the consult. /HANNAH Voice ID: [id number] Report ID: [id number]
[2020-10-06] MEDS ORDERED: POTASSIUM CL SA 10 MEQ TAB PO SCH (21:00)
[2020-10-07 04:27] VITALS: O2SAT 100
[2020-10-07] MEDS: METOPROLOL TAR 25 MG TAB PO SCH ×3 (05:30→16:56)
[2020-10-07 06:56] LABS: Absolute Lymphocytes (CBC) 2.2 K/uL (0.7-4.9); Basophils % 1.2 % (0-1.3); Hematocrit 32.1 % (36.0-45.0); Lymphocytes % 34.7 % (15.3-44.8); MPV 8.6 fL (7.6-11.3); RBC Red Blood Cell Count 3.72 M/uL (3.86-4.86)
[2020-10-07 07:10] LABS: Albumin 2.8 g/dL (3.4-5.0); Bilirubin Total 0.3 mg/dL (0.2-1.0); Magnesium 1.9 mg/dL (1.8-2.4); Potassium 3.9 mmol/L (3.5-5.1); Protein, Total 6.4 g/dL (6.4-8.2)
[2020-10-07] MEDS: FUROSEMIDE 40 MG/4 ML VIAL IV SCH ×2 (08:50→15:00)
[2020-10-07] MEDS: ENOXAPARIN 40 MG/0.4 ML SQ SCH (08:50)
[2020-10-07] MEDS: HYDROCODONE/APAP 7.5/325 MG TAB PO PRN (08:50)
[2020-10-07] MEDS ORDERED: lisinopriL 20 MG TAB PO SCH (09:00)
[2020-10-07 09:07] LABS: Anisocytosis 1+; Blood Morphology Comment NOTED (NOT SEEN); Hypochromasia 1+; Platelet Estimate ADEQ
--- NOTE | 2020-10-07 10:51 | P.DS ---
Admission Date: 10/06/20 Discharge Date: 10/07/20 Primary Care Provider: None Disposition: ROUTINE DISCHARGE Discharge Condition: GOOD Reason for Admission: New onset CHF Consultations: Cardiology-Dr. Reyna Pulmonary-Dr. Jain Procedures: COVID: Negative ECHO: MEASUREMENTS (cm) DIASTOLIC (NORMALS) SYSTOLIC (NORMALS) IVSd (0.6-1.2) LA Diam (1.9-4.0) LVEF 45-50% LVIDd (3.5-5.7) LVIDs (2.0-3.5) %FS % LVPWd (0.6-1.2) Ao Diam (2.0-3.7) 2 DIMENSIONAL ASSESSMENT: RIGHT ATRIUM: NORMAL LEFT ATRIUM: NORMAL RIGHT VENTRICLE: NORMAL LEFT VENTRICLE: DEPRESSED TRICUSPID VALVE: MILD TRICUSPID REGURGITATION MITRAL VALVE: MILD MITRAL REGURGITATION PULMONIC VALVE: NORMAL AORTIC VALVE: NORMAL PERICARDIAL EFFUSION: NONE AORTIC ROOT: NORMAL LEFT VENTRICULAR WALL MOTION: MILD GLOBAL HYPOKINESIS DOPPLER/COLOR FLOW: SEE BELOW COMMENTS: MILDLY DEPRESSED LEFT VENTRICULAR EJECTION FRACTION 45-50 % WITH MILD GLOBAL HYPOKINESIS. SEVERE DIASTOLIC DYSFUNCTION (RESTRICTIVE) WITH HIGH FILLING PRESSURE. PULMONARY HYPERTENSION WITH RIGHT VENTRICULAR SYSTOLIC PRESSURE OF 55-60 mmHg. MILD TRICUSPID REGURGITATION, MILD MITRAL REGURGITATION. Cardiac Stress test: FINDINGS: There is uniformity of radiotracer uptake involving the entire left ventricular myocardium on rest and stress images. The left ventricle is dilated The left ventricular ejection fraction equals 22% IMPRESSION: Negative for a myocardial perfusion defect Follow up CXR: FINDINGS: Areas subsegmental atelectasis is present within the mid left lung. Lungs otherwise appear clear of acute infiltrate. The heart remains enlarged Medical Problem List: Dyspnea, pedal edema likely secondary to new onset acute congestive heart failure, diastolic dysfunction with pulmonary hypertension Pulmonary hypertension Suspect underlying obstructive sleep apnea Obesity, BMI greater than 40 Brief History of Present Illness: 45-year-old female with history of hypertension presents emergency department for shortness of breath, pedal edema. Patient was admitted yesterday but decided to leave against medical advice to deal with some family issues. Patient reports that she has had increasing shortness breath over the course of the last 1 month with dyspnea on exertion and at rest. Upon arrival to the emergency department for admission yesterday patient was significantly hypertensive with blood pressures in the 190s over 110. Patient was diuresed and given some blood pressure medications while she was in the hospital then left AMA, patient returned to the hospital for further evaluation and management. Patient again evaluated in the emergency department patient some clinical improvement from previous visit, blood pressure currently around 150/90, troponin 0.03 BNP 1073 hemoglobin 10.6 hematocrit 33.9. She was admitted for further evaluation and treatment. Hospital Course: Patient presented with dyspnea, pedal edema secondary to acute CHF. Patient was admitted for treatment. Patient was seen and evaluated by cardiology. Cardiology recommended aggressive IV diuretic therapy. Echocardiogram shows m ildly depressed left ejection fraction around 45 to 50%. Severe diastolic dysfunction with high filling pressure noted. Cardiology also recommended cardiac stress test to further evaluate. Cardiac stress test unremarkable. Repeat chest x-ray shows improvement. Patient has done well with diuresis. At discharge patient will continue with 1500 cc/day fluid restriction and low-salt diet. At discharge patient will continue with Lasix 40 mg 1 pill daily. Recommend to continue to monitor weight daily. If her weight increases by more than 5 pounds she is to contact PCP or cardiology for further recommendation. Recommend follow-up with cardiology in 1 to 2 weeks to follow-up his hospitalization and continue her care. Patient with pulmonary hypertension. Blood pressure control was initiated. Patient will continue with metoprolol 25 mg 1 pill twice daily and lisinopril 10 mg 1 pill twice daily. Recommend to maintain blood pressure less than 130/80. Further adjustment can be done by her PCP. Hold medication if blood pressure systolic less than 110 or heart rate less than 50. Recommend follow-up with pulmonology as an outpatient to further address the pulmonary hypertension. Patient with suspected obstructive sleep apnea. Patient will follow up with pulmonology as an outpatient to further evaluate. Patient will need sleep study to further address and treat. Lifestyle modification education provided. Vital Signs/Physical Exam: Temp Pulse Resp BP Pulse Ox 97 F 75 16 128/94 H 94 10/07/20 08:00 10/07/20 08:00 10/07/20 08:00 10/07/20 08:00 10/07/20 08:00 General: Alert, In no apparent distress, Oriented x3, Cooperative HEENT: Atraumatic Neck: Supple Respiratory: Clear to auscultation bilaterally, Normal air movement Cardiovascular: Normal pulses, Regular rate/rhythm Gastrointestinal: Normal bowel sounds, Soft and benign, Non-distended, No tenderness, No masses, No rebound, No guarding Musculoskeletal: No erythema, No tenderness, No warmth Neurological: Normal speech, Normal strength at 5/5 x4 extr, Normal tone, Normal affect Laboratory Data at Discharge: WBC 6.30 K/uL (4.3-10.9) D 10/07/20 06:45 Hgb 10.2 g/dL (12.0-15.0) L 10/07/20 06:45 Hct 32.1 % (36.0-45.0) L 10/07/20 06:45 Plt Count 398 K/uL (152-406) 10/07/20 06:45 Sodium 140 mmol/L (136-145) 10/07/20 06:45 Potassium 3.9 mmol/L (3.5-5.1) 10/07/20 06:45 BUN 26 mg/dL (7-18) H 10/07/20 06:45 Creatinine 1.12 mg/dL (0.55-1.3) 10/07/20 06:45 Glucose 103 mg/dL (74-106) 10/07/20 06:45 Phosphorus Cancelled 10/06/20 05:00 Magnesium 1.9 mg/dL (1.8-2.4) 10/07/20 06:45 Total Bilirubin 0.3 mg/dL (0.2-1.0) 10/07/20 06:45 AST 73 U/L (15-37) H 10/07/20 06:45 ALT 79 U/L (12-78) H 10/07/20 06:45 Alkaline Phosphatase 82 U/L (45-117) 10/07/20 06:45 Triglycerides 185 mg/dL (<150) H 10/06/20 04:02 Cholesterol 133 mg/dL (<200) 10/06/20 04:02 HDL Cholesterol 54 mg/dL (40-60) 10/06/20 04:02 Cholesterol/HDL Ratio 2.46 10/06/20 04:02 Home Medications: Furosemide [Lasix] 40 mg PO DAILY #30 tab 10/07/20 Lisinopril [Zestril] 10 mg PO BID #60 tablet 10/07/20 Metoprolol Tartrate [Lopressor*] 25 mg PO BID 6AM 6PM #60 tab 10/07/20 New Medications: Furosemide [Lasix] 40 mg PO DAILY #30 tab Metoprolol Tartrate [Lopressor*] 25 mg PO BID 6AM 6PM #60 tab Lisinopril [Zestril] 10 mg PO BID #60 tablet Physician Discharge Instructions: Patient presented with dyspnea, pedal edema secondary to acute CHF. Patient was admitted for treatment. Patient was seen and evaluated by cardiology. Cardiology recommended aggressive IV diuretic therapy. Echocardiogram shows mildly depressed left ejection fraction around 45 to 50%. Severe diastolic dysfunction with high filling pressure noted. Cardiology also recommended cardiac stress test to further evaluate. Cardiac stress test unremarkable. Repeat chest x-ray shows improvement. Patient has done well with diuresis. At discharge patient will continue with 1500 cc/day fluid restriction and low-salt diet. At discharge patient will continue with Lasix 40 mg 1 pill daily. Recommend to continue to monitor weight daily. If her weight increases by more than 5 pounds she is to contact PCP or cardiology for further recommendation. Recommend follow-up with cardiology in 1 to 2 weeks to follow-up his hospitalization and continue her care. Patient with pulmonary hypertension. Blood pressure control was initiated. Patient will continue with metoprolol 25 mg 1 pill twice daily and lisinopril 10 mg 1 pill twice daily. Recommend to maintain blood pressure less than 130/80. Further adjustment can be done by her PCP. Hold medication if blood pressure systolic less than 110 or heart rate less than 50. Recommend follow-up with pulmonology as an outpatient to further address the pulmonary hypertension. Patient with suspected obstructive sleep apnea. Patient will follow up with pulmonology as an outpatient to further evaluate. Patient will need sleep study to further address and treat. Lifestyle modification education provided. Diet: AHA Activity: Ad wyatt Followup: Unknown,U [Primary Care Provider] - Time spent managing pt's care (in minutes): 55
[2020-10-07] MEDS ORDERED: REGADENOSON 0.4 MG/5 ML SYR IV ONE (10:53)
--- NOTE | 2020-10-07 13:01 | RAD REPORT ---
EXAM DESCRIPTION: Karthik Pa And Lat (2 Views)10/07/2020 12:54 pm CLINICAL HISTORY: Shortness breath COMPARISON: October 06 FINDINGS: Areas subsegmental atelectasis is present within the mid left lung. Lungs otherwise appear clear of acute infiltrate. The heart remains enlarged
--- NOTE | 2020-10-07 14:33 | RAD REPORT ---
EXAM DESCRIPTION: NM - Rest Stress Cardiac Imaging - 10/07/2020 2:25 pm CLINICAL HISTORY: Shortness of breath/CHF COMPARISON: None. TECHNIQUE: The patient was administered 10.3 mCi of Tc 99m Sestamibi prior to resting SPECT imaging of the heart. The patient was then administered 32.1 mCi of Tc 99m Sestamibi following exercise or ph armacologic stress. Multiplanar SPECT images were reviewed. FINDINGS: There is uniformity of radiotracer uptake involving the entire left ventricular myocardiu m on rest and stress images. The left ventricle is dilated The left ventricular ejection fraction equals 22% IMPRESSION: Negative for a myocardial perfusion defect
[2020-10-07 16:14] VITALS: BP 144/102; TEMP 97.3
--- NOTE | 2020-10-10 09:34 | TREADPHA ---
DX: SHORTNESS OF BREATH, HYPERTENSION, CONGESTIVE HEART FAILURE Date of Study: 10/07/2020 Ht: 5' 5 " Wt: 292 lb 1.6 oz Consulting Physician: SCOTTIE MEDICATIONS: LOVENOX, LOPRESSOR, PRINIVIL HISTORY: PHYSICIAL EXAMINATION: RESTING B.P.: 133/90 RESTING H.R.: 75 RESTING EKG: NORMAL SINUS RHYTHM WITH PREMATURE VENTRICULAR COMPLEXES, WITHIN NORMAL LIMITS. PROTOCOL: PHARMACOLOGIC EXERCISE TIME: 3:30 B.P. AT [place] STRESS: 118/87 IMPRESSION: LEXISCAN INJECTED. CARDIOLITE INJECTED. COMPLIANTS OF SHORTNESS OF BREATH, HEADACHE. NO CHEST PAIN. NO VENTRICULAR TACHYCARDIA. NO SUPRAVENTRICUALR TACHYCARDIA. PREMATURE VENTRICULAR COMPLEXESN OTED. NO ELECTROCARDIOGRAM CHANGED WITH LEXISCAN STRESS.
== END 2020-10-07 18:28 | disposition home or self-care (01) ==
LOC: ER 22:38 → 2ND 10-06 00:47
PROVIDERS: ADMIT Family Medicine; ATTEND Family Medicine
DX: I11.0 Hypertensive heart disease with heart failure (principal); I50.31 Acute diastolic (congestive) heart failure; I27.20 Pulmonary hypertension, unspecified; E66.9 Obesity, unspecified; Z68.42 Body mass index [BMI] 45.0-49.9, adult; F17.210 Nicotine dependence, cigarettes, uncomplicated; Z71.6 Tobacco abuse counseling; Z20.822 Contact with and (suspected) exposure to COVID-19; Z88.0 Allergy status to penicillin; Z88.6 Allergy status to analgesic agent
CPT/HCPCS: 93005; 93017; 93306; 85025 ×3; 80048; 36415 ×2; 83735 ×2; 84100; 80061; 84443; 81003; 84484; 84439; 80053 ×2; 83880; 71045; 71046 ×2; 78452; 96374; 99285; J1940 ×5; J1650 ×2; J2785; J2405; A9500; G0378

== ENCOUNTER 2020-11-05 00:28 | Emergency (ER) | payer OTHER ==
[2020-11-05 01:25] LABS: Protime INR 1.09
[2020-11-05 01:27] LABS: Absolute Lymphocytes (CBC) 1.7 K/uL (0.7-4.9); Basophils % 0.5 % (0-1.3); Hematocrit 35.3 % (36.0-45.0); Lymphocytes % 21.6 % (15.3-44.8); MPV 9.1 fL (7.6-11.3); RBC Red Blood Cell Count 4.15 M/uL (3.86-4.86)
[2020-11-05 01:39] LABS: ALT/SGPT 20 U/L (12-78); AST/SGOT 15 U/L (15-37); Albumin 3.3 g/dL (3.4-5.0); Alkaline Phosphatase 57 U/L (45-117); BUN Blood Urea Nitrogen 18 mg/dL (7-18); Bicarbonate 28 mmol/L (21-32); Bilirubin Direct < 0.1 mg/dL (0-0.2); Bilirubin Total 0.4 mg/dL (0.2-1.0); Glucose Level 114 mg/dL (74-106); Magnesium 1.9 mg/dL (1.8-2.4); NT PRO-BNP 861 pg/mL (<125); Potassium 3.4 mmol/L (3.5-5.1); Protein, Total 7.3 g/dL (6.4-8.2); Sodium Level 141 mmol/L (136-145); Troponin (Emerg Dept Use Only) < 0.02 ng/mL (0.0-0.045)
[2020-11-05] MEDS ORDERED: FUROSEMIDE 40 MG/4 ML VIAL ONE (02:36)
[2020-11-05] MEDS ORDERED: lisinopriL 20 MG TAB ONE (03:09)
[2020-11-05] MEDS ORDERED: lisinopriL 5 MG TAB ONE (03:09)
[2020-11-05] MEDS ORDERED: METOPROLOL TAR 25 MG TAB ONE (03:09)
[2020-11-05 03:17] LABS: Urine Blood Trace-intact (Negative); Urine Glucose Negative (Negative); Urine Protein Negative (Negative); Urine Specific Gravity 1.015 (1.005-1.030)
[2020-11-05 03:39] LABS: Urine Specific Gravity/Preg 1.015 (1.005-1.030)
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
--- NOTE | 2020-11-05 03:44 | EDPHYS ---
Physician Documentation [facility] Name: Apple Camara Age: 45 yrs Sex: Female : 1975 Arrival Date: 11/05/2020 Time: 00:29 Bed 5 Private MD: ED Physician Mango Marquez HPI: 11/05 00:57 This 45 yrs old Black Female presents to ER via EMS with complaints of Breathing mh7 Difficulty. 00:57 The patient has shortness of breath at rest. Onset: The symptoms/episode began/occurred mh7 3 week(s) ago, and became worse today. Duration: The symptoms are intermittent, with no pattern. The patient's shortness of breath is aggravated by sitting up, is alleviated by supine position. 00:59 Associated signs and symptoms: Pertinent positives: non-productive cough, for a few mh7 weeks, Pertinent negatives: chest pain, diaphoresis, dizziness, fever, hemoptysis, loss of consciousness, nausea, numbness in extremities, visual changes, vomiting. Severity of symptoms: At their worst the symptoms were moderate today, in the emergency department the symptoms are unchanged. The patient has experienced similar episodes in the past, multiple times. Patient brought to ED in police custody. States shortness of breath for several weeks but worsened today after being arrested.. 03:51 Patient states that she ran out of her medications a little over a week ago. She states mh7 that she does well when she takes her medications.. 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 - Social history:: Smoking status: Patient reports the use of cigarette tobacco products, 2-3 CIGARETTES A DAY. ROS: 00:59 Constitutional: Negative for fever, chills, and weight loss, Eyes: Negative for injury, mh7 pain, redness, and discharge, ENT: Negative for injury, pain, and discharge, Neck: Negative for injury, pain, and swelling, Cardiovascular: Negative for chest pain, palpitations, and edema, Abdomen/GI: Negative for abdominal pain, nausea, vomiting, diarrhea, and constipation, Back: Negative for injury and pain, : Negative for injury, bleeding, discharge, and swelling, MS/Extremity: Negative for injury and deformity, Skin: Negative for injury, rash, and discoloration, Neuro: Negative for headache, weakness, numbness, tingling, and seizure, Psych: Negative for depression, anxiety, suicide ideation, homicidal ideation, and hallucinations, Allergy/Immunology: Negative for hives, rash, and allergies, Endocrine: Negative for neck swelling, polydipsia, polyuria, polyphagia, and marked weight changes, Hematologic/Lymphatic: Negative for swollen nodes, abnormal bleeding, and unusual bruising. Exam: 00:59 Head/Face: Normocephalic, atraumatic. Eyes: Pupils equal round and reactive to light, mh7 extra-ocular motions intact. Lids and lashes normal. Conjunctiva and sclera are non-icteric and not injected. Cornea within normal limits. Periorbital areas with no swelling, redness, or edema. Neck: Trachea midline, no thyromegaly or masses palpated, and no cervical lymphadenopathy. Supple, full range of motion without nuchal rigidity, or vertebral point tenderness. No Meningismus. Chest/axilla: Normal chest wall appearance and motion. Nontender with no deformity. No lesions are appreciated. Cardiovascular: Regular rate and rhythm with a normal S1 and S2. No gallops, murmurs, or rubs. Normal PMI, no JVD. No pulse deficits. Respiratory: Lungs have equal breath sounds bilaterally, clear to auscultation and percussion. No rales, rhonchi or wheezes noted. No increased work of breathing, no retractions or nasal flaring. Abdomen/GI: Soft, non-tender, with normal bowel sounds. No distension or tympany. No guarding or rebound. No evidence of tenderness throughout. Back: No spinal tenderness. No costovertebral tenderness. Full range of motion. Skin: Warm, dry with normal turgor. Normal color with no rashes, no lesions, and no evidence of cellulitis. MS/ Extremity: Pulses equal, no cyanosis. Neurovascular intact. Full, normal range of motion. Neuro: Awake and alert, GCS 15, oriented to person, place, time, and situation. Cranial nerves II-XII grossly intact. Motor strength 5/5 in all extremities. Sensory grossly intact. Cerebellar exam normal. Normal gait. 00:59 Constitutional: The patient appears in no acute distress, alert, awake, anxious. 00:59 Psych: Behavior/mood is anxious, Affect is animated, Oriented to person, place, time, Patient has no thoughts/intents to harm self or others. Judgement / Insight is normal. Memory is normal. Delusions/hallucinations are not present. Vital Signs: 00:37 BP 152 / 109; Pulse 97; Resp 18; Temp 97.8; Pulse Ox 100% on R/A; Weight 114.31 kg; rv Height 5 ft. 6 in. (167.64 cm); Pain 10/10; 02:10 BP 175 / 110; Pulse 99; Resp 20; Pulse Ox 98% ; rr5 03:13 BP 150 / 106; Pulse 95; Resp 16; Pulse Ox 98% ; rr5 03:29 BP 127 / 99; Pulse 90; Resp 16; Pulse Ox 98% ; rr5 00:37 Body Mass Index 40.67 (114.31 kg, 167.64 cm) rv MDM: 03:40 Differential diagnosis: Anemia Anxiety Reaction asthma, Bronchitis CHF exacerbation, mh7 Chronic Obstructive Pulmonary Disease Myocardial Infarction pneumonia, Pneumothorax Psychogenic pulmonary edema, reactive airway disease. Data reviewed: vital signs, nurses notes, EMS record, old medical records, lab test result(s), cardiac enzymes, CBC, electrolytes, urinalysis, EKG, radiologic studies, plain films. Data interpreted: Pulse oximetry: on room air is 100 %. Interpretation: normal. Counseling: I had a detailed discussion with the patient and/or guardian regarding: the historical points, exam findings, and any diagnostic results supporting the discharge/admit diagnosis, the presence of at least one elevated blood pressure reading (>120/80) during this emergency department visit, lab results, radiology results, to return to the emergency department if symptoms worsen or persist or if there are any questions or concerns that arise at home. Response to treatment: the patient's symptoms have resolved after treatment, the patient's blood pressure is in an acceptable range, mental status has returned to baseline, the patient no longer shows bradycardia, the patient is not short of breath, the patient is not tachycardic, the patient's pain is gone, the patient's temperature has normalized. 03:43 Patient medically screened. mh7 04:02 ED course: Well appearing, NAD, VSS. No Chest pain, SOB, nausea, vomiting, or other [facility] complaints. Ambulated around ED multiple times without difficulty. Patient stated that she was ready to be discharged. Advised patient not to allow her prescriptions to run out. She will follow up with her doctor, but told to return to ED if she has any concerns.. 11/05 00:51 Order name: Basic Metabolic Panel [facility] 11/05 00:51 Order name: CBC with Diff [facility] 11/05 00:51 Order name: LFT's [facility] 11/05 00:51 Order name: Magnesium [facility] 11/05 00:51 Order name: NT PRO-BNP [facility] 11/05 00:51 Order name: PT-INR; Complete Time: :57 [facility] 11/05 00:51 Order name: Troponin (emerg Dept Use Only); Complete Time: :57 [facility] 11/05 00:51 Order name: UDS [facility] 11/05 00:51 Order name: ETOH Level; Complete Time: :57 [facility] 11/05 00:52 Order name: Basic Metabolic Panel; Complete Time: 01:57 [facility] 11/05 00:52 Order name: CBC with Automated Diff; Complete Time: :57 [facility] 11/05 00:52 Order name: Liver (Hepatic) Function; Complete Time: :57 [facility] 11/05 00:52 Order name: Magnesium; Complete Time: :57 [facility] 11/05 00:52 Order name: NT PRO-BNP; Complete Time: 01:57 [facility] 11/05 00:51 Order name: XRAY Chest (1 view) [facility] 11/05 00:51 Order name: EKG; Complete Time: 00:53 [facility] 11/05 00:51 Order name: Cardiac monitoring; Complete Time: 00:52 [facility] 11/05 00:51 Order name: EKG - Nurse/Tech; Complete Time: 00:52 [facility] 11/05 00:51 Order name: IV Saline Lock; Complete Time: 03:20 [facility] 11/05 00:51 Order name: Labs collected and sent; Complete Time: 03:20 [facility] 11/05 00:51 Order name: O2 Per Protocol; Complete Time: 00:52 [facility] 11/05 00:51 Order name: O2 Sat Monitoring; Complete Time: 00:52 [facility] 11/05 00:51 Order name: Urine Dipstick-Ancillary (obtain specimen); Complete Time: 03:19 [facility] 11/05 00:51 Order name: Urine Test (obtain specimen); Complete Time: 03:19 [facility] 11/05 03:17 Order name: Urine Dipstick-Ancillary [facility] 11/05 03:17 Order name: Urine Dipstick-Ancillary; Complete Time: 03:21 [facility] 11/05 03:20 Order name: Urine --Ancillary (enter results) oe Administered Medications: 02:23 Drug: Lasix (furosemide) 40 mg Route: IVP; Site: right antecubital; rr5 02:53 Drug: Metoprolol 25 mg Route: PO; rv 02:54 Drug: Lisinopril 25 mg Route: PO; rv Disposition: 11/05/20 03:43 Discharged to Home. Impression: Chronic CHF, Medication Non Compliance. - Condition is Stable. - Discharge Instructions: Heart Failure, [id number]. - Prescriptions for Lasix 40 mg Oral Tablet - take 1 tablet by ORAL route once daily for 30 days; 30 tablet. Metoprolol Tartrate 25 mg Oral Tablet - take 1 tablet by ORAL route 2 times per day with a meal; 30 tablet. Lisinopril 20 mg Oral Tablet - take 1 tablet by ORAL route once daily; 30 tablet. - Medication Reconciliation Form, Thank You Letter, Antibiotic Education, Prescription Opioid Use form. - Follow up: Private Physician; When: 1 - 2 days; Reason: Worsening of condition, Recheck today's complaints, Continuance of care, Re-evaluation by your physician. Follow up: Hugh Polanco MD; When: 1 - 2 days; Reason: Worsening of condition, Recheck today's complaints. - Problem is an acute exacerbation. - Symptoms have improved. Signatures: Dispatcher [employer] [facility] Gilmar Solis RN RN rv Jose Daniel Hartman RN RN rr5 Mango Marquez MD MD mh7 Corrections: (The following items were deleted from the chart) 03:58 03:43 11/05/2020 03:43 Discharged to Home. Impression: Chronic CHF, Medication Non rr5 Compliance. Condition is Stable. Forms are Medication Reconciliation Form, Thank You Letter, Antibiotic Education, Prescription Opioid Use. Follow up: Private Physician; When: 1 - 2 days; Reason: Worsening of condition, Recheck today's complaints, Continuance of care, Re-evaluation by your physician. Follow up: Hugh Polanco; When: 1 - 2 days; Reason: Worsening of condition, Recheck today's complaints. Problem is an acute exacerbation. Symptoms have improved. mh7
[2020-11-05 04:07] LABS: Barbiturates NEGATIVE (NEGATIVE); Benzodiazepines NEGATIVE (NEGATIVE); Cocaine NEGATIVE (NEGATIVE); METHAMPHETAM POSITIVE (NEGATIVE); Methadone NEGATIVE (NEGATIVE); Opiates NEGATIVE (NEGATIVE); Phencyclidine NEGATIVE (NEGATIVE); THC Cannibis NEGATIVE (NEGATIVE)
[2020-11-05 04:10] VITALS: TEMP 97.8
[2020-11-05 04:12] VITALS: O2SAT 98
[2020-11-05 04:16] VITALS: BP 127/99
--- NOTE | 2020-11-05 07:22 | EKG ---
Test Date: 2020-11-05 Test Time: 00:44:05 Carpenter Inspector: RR MEASUREMENT RESULTS: Intervals: Rate: 92 RI: 116 QRSD: 82 QT: 402 QTc: 497 [place]: P: 65 RI: 116 QRS: -23 T: 67 INTERPRETIVE STATEMENTS: Normal sinus rhythm Biatrial enlargement Septal infarct, age undetermined T wave abnormality, consider lateral ischemia Abnormal ECG Compared to ECG 10/05/2020 23:01:50 Atrial abnormality now present T-wave abnormality now present Possible ischemia now present Myocardial infarct finding still present Electronically Signed On 11-05-20 07:21:47 CDT by Hugh Polanco
--- NOTE | 2020-11-05 20:49 | RAD REPORT ---
EXAM DESCRIPTION: RAD - Chest Single View - 11/05/2020 1:15 am COMPARISON: None. CLINICAL HISTORY: [facility] MAIN SOB FINDINGS: A single AP view of the chest demonstrates a mildly enlarged cardiomediastinal silhouette. No pneumothorax or pleural effusion. Bilateral perihilar opacities are present. Osseous structures are intact. IMPRESSION: Mild cardiomegaly with pulmonary edema or early infection. Electronically signed by: Eduard An MD 11/05/2020 2:07 AM CDT Due to temporary technical issues with the PACS/Fluency reporting system, reports are being signed by the in house radiologists without review as a courtesy to insure prompt reporting. The interpreting radiologist is fully responsible for the content of the report.
== END 2020-11-05 03:58 | disposition home or self-care (01) ==
LOC: ER 00:28
DX: I50.9 Heart failure, unspecified (principal); Z91.14 Patient's other noncompliance with medication regimen; I10 Essential (primary) hypertension; F17.210 Nicotine dependence, cigarettes, uncomplicated; Z88.0 Allergy status to penicillin; Z88.6 Allergy status to analgesic agent
CPT/HCPCS: 93005; 85025; 80048; 36415; 80320; 83735; 81025; 85610; 80076; 80307 ×8; 81003; 84484; 83880; 71045; 96374; 99285; J1940

== ENCOUNTER 2020-12-02 22:02 | Emergency (ER) | payer OTHER ==
[2020-12-02] MEDS ORDERED: EPINEPHrine 1 MG/10 ML SYR IV ONE (22:03)
[2020-12-02] MEDS ORDERED: D50W 25 GM/50 ML SYRINGE IV ONE (22:03)
[2020-12-02] MEDS ORDERED: LIDOCAINE 100 MG/5 ML SYRINGE IV ONE (22:03)
--- NOTE | 2020-12-02 22:28 | EDPHYS ---
Physician Documentation [facility] Name: Apple Camara Age: 45 yrs Sex: Female : 1975 Arrival Date: 12/02/2020 Time: 22:03 Bed 2 Private MD: ED Physician Mango Marquez HPI: 12/02 22:04 This 46 yrs old Black Female presents to ER via Unassigned with complaints of CPR. 7 22:04 Preceding the arrest, the patient collapsed, was dyspneic. The arrest occurred at home. 7 Pre-hospital course: The arrest was witnessed by family. Bystanders at the scene performed CPR. EMS care prior to arrival: initiation of ACLS, peripheral IV, was successfully placed. intubation was successfully performed, orally, oxygen, by BVM to assist ventilations. 100% by ET tube. backboard, EMS call time was unknown. EMS on scene time was unknown. Time elapsed prior to ACLS is unknown. ACLS has been in progress for 35 minutes. ACLS details: Initial rhythm was V-fib. The presenting rhythm is asystole. Airway: Ambu assist ventilation, Medications given by EMS prior to arrival - Epinephrine IV x 3 doses, Defibrillated X 5, an external pacer was not used, Response to therapy: continued arrest. 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 - Social history:: Smoking status: unknown. ROS: 22:04 Unable to obtain ROS due to unresponsive. [facility] Exam: 22:04 Head/Face: Normocephalic, atraumatic. mh7 22:04 Neck: Trachea midline, no thyromegaly or masses palpated, and no cervical lymphadenopathy. Supple, full range of motion without nuchal rigidity, or vertebral point tenderness. No Meningismus. Chest/axilla: Normal chest wall appearance and motion. Nontender with no deformity. No lesions are appreciated. 22:04 Abdomen/GI: Soft, non-tender, with normal bowel sounds. No distension or tympany. No guarding or rebound. No evidence of tenderness throughout. Skin: Warm, dry with normal turgor. Normal color with no rashes, no lesions, and no evidence of cellulitis. 22:04 Constitutional: The patient appears unresponsive 22:04 Eyes: Periorbital structures: appear normal, Pupils: are fixed and dilated, Extraocular movements: no movement, Conjunctiva: normal. 22:04 ENT: ET Tube in place. 22:04 Cardiovascular: Rate: actual rate is 0 bpm, Rhythm: asystole, Pulses: not palpable, Heart sounds: Absent, Edema: is not appreciated, JVD: is not appreciated. 22:04 Respiratory: severe repiratory distress is noted, Respirations: No spontaneous respirations, Breath sounds: Equal with BVM, Respiratory rate: No spontaneous respirations 22:04 Musculoskeletal/extremity: ROM: No movement, No palpable pulse. No response to any stimulation 22:04 Neuro: Orientation: unable to test, Unresponsive, Mentation: unable to test, Unresponsive, Memory: unable to test, Unresponsive, Cranial nerves: unable to test, Unresponsive, Cerebellar function: unable to test, Unresponsive, Motor: No movement, Sensation: No response to any stimuli, Gait: not tested. Vital Signs: 21:37 Pulse 0; Resp 0; ca1 21:47 Pulse 0; Resp 0; ca1 MDM: 22:04 Differential diagnosis: arrythmia, cardiac arrest, respiratory arrest, overdose, mh7 asphyxiation. Data reviewed: vital signs, nurses notes, EMS record. ED course: Patient arrived via EMS in asystole. Total down time CUFF KNITTER was about 35 minutes. Initial rhythm at scene was ventricular fibrillation. Patient received total of 5 defibrillation shocks and Epinephrine 3 mg total en route to hospital. ACLS continued on arrival to ED for asystole with Epinephrine 2 mg, Sodium Bicarbonate 1 AMP, Narcan 2 mg but remained in asystole. Patient still without spontaneous respirations, spontaneous heart beat/pulse, response to any stimuli, pupils fixed and dilated. ACLS was discontinued and pronounced at 21:47.. 22:27 Patient medically screened. mh7 Administered Medications: 21:40 Drug: EPINEPHrine 0.1mg/mL 1:10,000 1 mg {Note: IO .} Route: IVP; Site: Other; ca1 21:42 Drug: Sodium Bicarbonate 1 amp {Note: IO.} Route: IVP; Site: Other; ca1 21:43 Drug: NARcan (naloxone) 2 mg {Note: IO.} Route: IVP; Site: Other; ca1 21:43 Drug: EPINEPHrine 0.1mg/mL 1:10,000 1 mg {Note: IO .} Route: IVP; Site: Other; ca1 Disposition: 22:04 . [facility] Disposition: Patient pronounced on 12/02/20 21:47 by Mango Marquez. Impression: Cardiac arrest, Asystole. - Released to Psychiatry Teacher. Signatures: Jose Daniel Hartman RN RN rr5 Mis Vickers RN RN ca1 Mango Marquez MD MD [facility] Corrections: (The following items were deleted from the chart) 12/03 00:59 12/02 22:27 12/02/2020 22:27 Patient pronounced on 12/02/2020 at 21:47 by kingsley Marquez. Impression: Cardiac arrest; Asystole. Released to Psychiatry Teacher. [facility]
--- NOTE | 2020-12-02 22:28 | ER ---
Nurse's Notes [facility] Name: Los Tesfaye Age: 45 yrs Sex: Female : 1975 Arrival Date: 12/02/2020 Time: 22:03 Bed 2 Private MD: Diagnosis: Cardiac arrest;Asystole Presentation: 12/02 21:37 Chief complaint: EMS states: Toned in by PD for pt unresponsive and foaming in the ca1 mouth. Upon arrival on scene, PD has started CPR. Pt unresponsive, CPR continued. Pt on V-Fib, shocked given 5x, CPR ETL SOFTWARE ENGINEER 30-35 mins. Given Epi x 3, last dose 30 minutes ETL SOFTWARE ENGINEER. HX of CHF, substance abuse and SI. Family on scene unable to give other details. 21:37 Care prior to arrival: Oral airway placed, CPR via thumper was defibrillated and is ca1 still in progress Placed on backboard. Compressions began prior to arrival. 21:37 Method Of Arrival: EMS: [facility] ca1 21:37 Acuity: JOSE 1 ca1 21:37 Coronavirus screen: unable to obtain. ca1 21:37 Ebola Screen: Unable to complete the Ebola screening because:. Initial Sepsis Screen: ca1 Does the patient meet any 2 criteria? No. Patient's initial sepsis screen is negative. Does the patient have a suspected source of infection? No. Patient's initial sepsis screen is negative. Risk Assessment: Do you want to hurt yourself or someone else? Unable to obtain. Onset of symptoms was December 02, 2020 at 21:37. Triage Assessment: 21:37 General: Appears Behavior is unresponsive. Pain: Unable to use pain scale. Patient is ca1 unresponsive. Neuro: Level of Consciousness is unresponsive, Oriented to none. Cardiovascular: Heart tones absent Rhythm is asystole. Respiratory: Airway is patent Trachea midline Respiratory pattern is apnea. 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 - Social history:: Smoking status: unknown. Screenin:14 Abuse screen: unable to obtain. Nutritional screening: unable to obtain. Tuberculosis ca1 screening: unable to obtain. Fall Risk None identified. Assessment: 21:37 CPR assessment: unresponsive, pupils fixed \T\ dilated, no respiratory effort, Ambu ca1 ventilation, pale, dependent lividity noted, pulses absent w/ compressions. Cardiac rhythm is asystole. General:. Neuro: Level of Consciousness is unresponsive. Cardiovascular: Heart tones absent Rhythm is asystole. Respiratory: Airway via oral airway Trachea midline Respiratory pattern is apnea. 21:40 Reassessment: Followed ACLS protocol. ca1 22:00 Reassessment: registration staff processing the correct name los TESFAYE rr5 06/02/1974 [id number]. 22:48 Reassessment: Called [employer] Ria Malhotra. Case #[id number]. ca1 23:07 Reassessment: [place] [employer] at bedside. rr5 23:13 Reassessment: record label internship at bedside. rr5 23:40 Reassessment: judge taylor signed the form and order for [place]. rr5 12/03 00:58 Reassessment: body taken and will send to [facility]. rr5 Vital Signs: 12/02 21:37 Pulse 0; Resp 0; ca1 21:47 Pulse 0; Resp 0; ca1 ED Course: 21:37 Patient has correct armband on for positive identification. ca1 21:37 Arm band placed on. ca1 21:45 Maintain EMS IV. Dressing intact. Good blood return noted. Site clean \T\ dry. Gauge \T\ ca 1 site: IO LLE. 21:45 No provider procedures requiring assistance completed. ca1 22:03 Patient arrived in ED. ca1 22:03 Mango Marquez MD is Attending Physician. 7 22:11 Triage completed. ca1 22:25 iMs Vickers, ANTHONY is Primary Nurse. ca1 22:26 Mango Marquez MD is Pronouncing Provider. [facility] Administered Medications: 21:40 Drug: EPINEPHrine 0.1mg/mL 1:10,000 1 mg {Note: IO .} Route: IVP; Site: Other; ca1 21:42 Drug: Sodium Bicarbonate 1 amp {Note: IO.} Route: IVP; Site: Other; ca1 21:43 Drug: NARcan (naloxone) 2 mg {Note: IO.} Route: IVP; Site: Other; ca1 21:43 Drug: EPINEPHrine 0.1mg/mL 1:10,000 1 mg {Note: IO .} Route: IVP; Site: Other; ca1 Outcome: 21:47 Outcome Patient ca1 21:47 Patient : Time of 21:47 Pronounced by Mango Marquez MD ca1 21:47 Condition: 12/03 00:59 Patient left the ED. rr5 Signatures: Jose Daniel Hartman RN RN rr5 Mis Vickers RN RN ca1 Mango Marquez MD MD mh7 Corrections: (The following items were deleted from the chart) 12/02 22:15 21:37 Pulse 0bpm; Resp 0bpm; ca1 ca1 22:18 General: Appears Behavior is unresponsive. ca1 ca1 22:18 Pain: Unable to use pain scale. Patient is unresponsive. ca1 ca1 22:18 Neuro: Level of Consciousness is unresponsive, Oriented to none ca1 ca1 :18 Cardiovascular: Heart tones absent Rhythm is asystole ca1 ca1 22:18 Respiratory: Airway is patent Trachea midline Respiratory pattern is apnea ca1 ca1
== END 2020-12-03 00:59 ==
LOC: MERGE 22:02 → EDBD 22:02 → ER 22:02
DX: I46.9 Cardiac arrest, cause unspecified (principal)
CPT/HCPCS: 92950; 96374; 96375; 99285; J0171